=== PATIENT | female | born 1935 | race Caucasian/White ===

== ENCOUNTER 2016-09-16 03:23 | Emergency (ER) | payer OTHER ==
[2016-09-16 03:33] VITALS: BP 177/84; BMI 19.0
--- NOTE | 2016-09-16 03:33 | DR.GENAD ---
HPI - HPI Comment HPI Comment: HISTORY BELOW. - Complaint/Symptoms Chief Complaint Doctors Comments: FELL WHIE GETTING INTO HER BED. LACERATION FOREHRAD. FELL DRUNK SINCE SHE STARTED TAKING A NEW MEDICATION ONE WEEK AGO. DID NOT LOOSE CONCIOUSNESS. Chief Complaint:: "I have been feeling dizzy for the past week now. I started some new medication and it has made me feel that way I think. I was getting into bed and fell and cut my head open." - Nurses notes reviewed Nurses Notes Review: Yes - Source History Provided: EMS - Mode of Arrival Mode of Arrival: EMS - Timing Onset of Chief Complaint: 09/16/16 Came on: Suddenly - Duration Duration: Constant Duration: Hours - Severity Severity: Moderate PMH - PMH Past Medical History: Yes Past Medical History: Coronary Artery Disease, Hypertension Past Surgical History: Yes Surgical History: Angioplasty/Stents, Cholecystectomy, Hysterectomy Past Surgical History Comment: Ablation for a-fib - Family History History of Family Medical Conditions: Yes Family Medical History: Diabetes Mellitus, Cancer, [place], Coronary Artery Disease, Hypertension - Social History Does patient currently use any type of tobacco product: No Have you used tobacco products in the last 12 months: No Type of Tobacco Use: None Does any household member use tobacco: No Alcohol Use: None Do you use any recreational Drugs:: No Lives With: Alone Lives Where: Home - infectious screening In the last 2 months have you had wt loss of >10#?: NO Have you had fever, night sweats or hemotysis?: No Have you traveled outside the country in the last 6 months?: No Isolation: Standard ROS - Review of Systems Constitutional: No Symptoms Reported Eyes: No Symptoms Reported ENTM: negative: Ear Pain, Nose Discharge, Epistaxis, Nose Congestion, Throat Swelling Respiratoy: negative: Productive Cough, Non-Productive Cough, Short of Breath, Wheezing, Hemoptysis Cardiovascular: negative: Chest Pain, Edema, Palpitations, Syncope Gastrointestinal/Abdominal: negative: Abdominal Pain, Diarrhea, Nausea Genitourinary: negative: Dysuria, Frequency, Hematuria Neurological: Headache (MILD), Dizziness, Problems Walking Musculoskeletal: Other (FOREHEAD LAC, 3C,) Integumentary: Other (LAC FOREHEAD, 3CM) Hematologic/Lymphatic: Easy Bruising Endocrine: No Symptoms Reported All Other Systems: Reviewed and Negative PE - Vital Signs Vitals: Temperature 97.5 F Pulse Rate 73 Respiratory Rate 18 Blood Pressure [Right Arm] 163/75 Blood Pressure [Right Arm] 164/75 Blood Pressure 177/84 O2 Sat by Pulse Oximetry 99 - General Limitations: No Limitations General Appearance: Alert - Head Head Exam: Other (3CM FOREHEAD LACERATION) - Eyes Eye exam: PERRL, EOMI. negative: Conjunctival Injection - ENT ENT Exam: Normal External Ear Exam, Other (DECREASE HEARING.) TM/Canal Exam: Bilateral Normal Nose Exam: Normal Nose Exam Mouth Exam: Normal Inspection Throat Exam: Normal Inspection - Neck Neck Exam: Normal Inspection - Chest Chest Inspection: Symmetric Chest Wall Rise - Respiratory Respiratory Exam: Normal Lung Sounds Bilat Respiratory Exam: Bilateral Clear to Auscultation - Cardiovascular Cardiovascular Exam: Regular Rate, Normal Rhythm, Normal Heart Sounds - Abdominal Exam Abdominal Exam: Normal Bowel Sounds, Soft. negative: Tenderness - Extremities Extremities Exam: Normal Inspection - Back Back Exam: Paraspinal Tenderness - Neurologic Neurological Exam: Alert, Oriented X3 - Psychiatric Psychiatric Exam: Normal Affect, Normal Mood - Skin Skin Exam: Erythema MDM - Differential Diagnosis Differential Diagnosis: LACERATION FOREHEAD, HEAD TRAUMA, CEREBRAL BLEED, DIZZINESS. Course - Treatment Treatment: SEE ORDERS. LACERATION CLOSED IN ED. - Reevaluation 1st: Improved - Education/Counseling Education/Counseling: Patient, Education Educated On: Diagnosis, Needs for Follow Up ROR - Labs Reviewed Laboratory Results Reviewed?: Yes Result Diagrams: 09/16/16 04:20 09/16/16 04:20 Laboratory: WBC 6.0 X10^3/uL (3.6-10.0) 09/16/16 04:20 RBC 3.71 X10^6/uL (3.5-5.4) 09/16/16 04:20 Hgb 11.6 g/dL (12.0-16.0) L 09/16/16 04:20 Hct 33.8 % (36.0-47.0) L 09/16/16 04:20 MCV 91.0 fL (80.0-100.0) 09/16/16 04:20 MCH 31.2 pg (27.0-34.0) 09/16/16 04:20 MCHC 34.3 g/dL (33.0-35.0) 09/16/16 04:20 RDW 13.3 % (11.6-16.5) 09/16/16 04:20 Plt Count 211 X10^3/uL (150.0-450.0) 09/16/16 04:20 MPV 8.8 fL (7.4-11.0) 09/16/16 04:20 Neut % 66.3 % (42.0-75.0) 09/16/16 04:20 Lymph % 19.4 % (21.0-51.0) L 09/16/16 04:20 [place] % 7.6 % (0.0-13.0) 09/16/16 04:20 Eos % 5.7 % (0.9-2.9) H 09/16/16 04:20 Baso % 1.0 % (0.2-1.0) 09/16/16 04:20 Neut # 4.0 x10^3/uL (2.2-4.8) 09/16/16 04:20 Lymph # 1.2 X10^3/uL (1.3-2.9) L 09/16/16 04:20 [place] # 0.5 x10^3/uL (0.3-0.8) 09/16/16 04:20 Eos # 0.3 x10^3/uL (0.0-0.2) H 09/16/16 04:20 Baso # 0.1 X10^3/uL (0.0-0.1) 09/16/16 04:20 Absolute Nucleated RBC 0.0 /100WBC 09/16/16 04:20 Sodium 130 mmol/L (136-145) L 09/16/16 04:20 Corrected Sodium TNP 09/16/16 04:20 Potassium 4.1 mmol/L (3.5-5.1) 09/16/16 04:20 Chloride 93 mmol/L (98-107) L 09/16/16 04:20 Carbon Dioxide 31.4 mmol/L (21-32) 09/16/16 04:20 BUN 17 mg/dL (7-18) 09/16/16 04:20 Creatinine 0.99 mg/dL (0.55-1.02) 09/16/16 04:20 Est GFR (MDRD) Af Amer > 60 (>60) 09/16/16 04:20 Est GFR (MDRD) Non-Af 57 (>60) L 09/16/16 04:20 Glucose 101 mg/dL (65-99) H 09/16/16 04:20 Calcium 8.7 mg/dL (8.5-10.1) 09/16/16 04:20 Corrected Calcium 9.3 mg/dL (8.5-10.1) 09/16/16 04:20 Total Bilirubin 0.20 mg/dL (0.2-1.0) 09/16/16 04:20 AST 20 Units/L (15-37) 09/16/16 04:20 ALT 25 Units/L (12-78) 09/16/16 04:20 Alkaline Phosphatase 96 Units/L (46-116) 09/16/16 04:20 Creatine Kinase 36 Units/L (26-192) 09/16/16 04:20 CK-MB (CK-2) 1.7 ng/mL (0-4.0) 09/16/16 04:20 CK/CKMB % Calc 4.7 % (<4) 09/16/16 04:20 Troponin I < 0.02 ng/mL (0-1.5) 09/16/16 04:20 Total Protein 6.8 g/dL (6.4-8.2) 09/16/16 04:20 Albumin 3.3 g/dL (3.4-5.0) L 09/16/16 04:20 Globulin 3.5 g/dL (2.5-4.5) 09/16/16 04:20 Albumin/Globulin Ratio 0.9 Ratio (1.1-2.1) L 09/16/16 04:20 - XRAY XRAY Interpreted by: Radiologist XRAY Findings: REPORT DISCUSS WITH PATIENT, - EKG Rhythm: Paced (EKG NOTED.) - Diagnosis Discharge Problem: Laceration of forehead Qualifiers: Encounter type: initial encounter Qualified Code(s): S01.81XA - Laceration without foreign body of other part of head, initial encounter Forehead contusion Qualifiers: Encounter type: initial encounter Qualified Code(s): S00.83XA - Contusion of other part of head, initial encounter - Discharge Plan Disposition: 01 HOME, SELF-CARE Condition: Stable - Follow ups/Referrals Follow ups/Referrals: Devante Mera [Primary Care Provider] - 3 days - Instructions Instructions: Facial Laceration, Laceration Care, Adult, [id number] Additional Instructions: RETURN TO ED IF WORSE. SUTURE OUT IN 10 DAYS.
[2016-09-16] MEDS ORDERED: XYLOCAINE 1 % (PLAIN) ONE (04:19)
[2016-09-16] MEDS ORDERED: HYDROGEN PEROXIDE 3% ONE (04:27)
--- NOTE | 2016-09-16 04:32 | CT ---
Head without contrast Indication: Pain after fall. Head trauma. Technique: Axial images from the skullbase to the vertex without contrast. Coronal and sagittal refo rmats were provided. Findings: There is no acute intracranial hemorrhage, mass or mass effect. FX at of fluid collection or abnormal area of hypoattenuation to suggest infarction seen. Ventricles and sulci are show mild m ild atrophy. Review of bone windows shows no osseous lesion. Paranasal sinuses and mastoid air cells are clear. 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 Reported By:
[2016-09-16 04:35] LABS: BASOPHILS # (AUTO) 0.1 X10^3/uL (0.0-0.1); EOSINOPHILS # (AUTO) 0.3 x10^3/uL (0.0-0.2); EOSINOPHILS % (AUTO) 5.7 % (0.9-2.9); HEMATOCRIT 33.8 % (36.0-47.0); HEMOGLOBIN 11.6 g/dL (12.0-16.0); LYMPHOCYTES # (AUTO) 1.2 X10^3/uL (1.3-2.9); LYMPHOCYTES % (AUTO) 19.4 % (21.0-51.0); MEAN CORPUSCULAR HEMOGLOBIN 31.2 pg (27.0-34.0); MEAN CORPUSCULAR HGB CONC 34.3 g/dL (33.0-35.0); MEAN PLATELET VOLUME 8.8 fL (7.4-11.0); MONOCYTES # (AUTO) 0.5 x10^3/uL (0.3-0.8); MONOCYTES % (AUTO) 7.6 % (0.0-13.0); NEUTROPHILS % (AUTO) 66.3 % (42.0-75.0); PLATELET COUNT 211 X10^3/uL (150.0-450.0); RED BLOOD COUNT 3.71 X10^6/uL (3.5-5.4); RED CELL DISTRIBUTION WIDTH 13.3 % (11.6-16.5)
[2016-09-16 04:48] LABS: BLOOD UREA NITROGEN 17 mg/dL (7-18); CALCIUM 8.7 mg/dL (8.5-10.1); CARBON DIOXIDE 31.4 mmol/L (21-32); CHLORIDE 93 mmol/L (98-107); CREATININE 0.99 mg/dL (0.55-1.02); GLUCOSE 101 mg/dL (65-99); SODIUM 130 mmol/L (136-145); TROPONIN I < 0.02 ng/mL (0-1.5); eGFR BLACK RACES > 60 (>60); eGFR NON BLACK RACES 57 (>60)
[2016-09-16 04:52] LABS: ALANINE AMINOTRANSFERASE 25 Units/L (12-78); ALBUMIN 3.3 g/dL (3.4-5.0); ALKALINE PHOSPHATASE 96 Units/L (46-116); ASPARTATE AMINO TRANSFERASE 20 Units/L (15-37); CKMB % 4.7 % (<4); COR CA(FOR HYPOALB) 9.3 mg/dL (8.5-10.1); CREATINE KINASE 36 Units/L (26-192); CREATINE KINASE MB 1.7 ng/mL (0-4.0); TOTAL PROTEIN 6.8 g/dL (6.4-8.2)
== END 2016-09-16 05:32 | disposition home or self-care (01) ==
LOC: ER 03:23
PROC: 0WQ00ZZ Repair Head, Open Approach (ICD-10-PCS; principal; 2016-09-16)
DX: S01.81XA Laceration without foreign body of other part of head, initial encounter (principal); S00.83XA Contusion of other part of head, initial encounter; W19.XXXA Unspecified fall, initial encounter; Y92.9 Unspecified place or not applicable
CPT/HCPCS: 12013; 36415; 70450; 80053; 82550; 82553; 84484; 85025; 93005; 99283; J2001

== ENCOUNTER → 2016-10-05 | Outpatient (CLI) | payer OTHER ==
[2016-09-16 03:33] VITALS: BP 177/84
--- NOTE | 2016-10-05 15:00 | CT ---
HISTORY: Abnormal gait, mobility. Study: CT brain without contrast Comparison: CT head dated September 16, 2016. Technique: Multiple axial images of the brain were obtained from the skull base to the vertex without administr ation of IV contrast. Dose reduction techniques including Automated Exposure Control (AEC) and adju stment of mA and kV were utilized. Findings: Age related cortical atrophy and chronic small vessel ischemic changes . Calcification of the bilate ral basal ganglia. No acute intraparenchymal hemorrhage or mass can be identified. No extra-axial f luid collections are seen. No alteration in the attenuation of the brain parenchyma can be identifi ed to suggest acute or subacute ischemic change. The ventricular system is symmetric and nondilated . The extracranial structures are grossly unremarkable. IMPRESSION: 1. No obvious acute intracranial pathology. 2. Other chronic findings as above. Reported By:
== END ==
LOC: RAD 14:13
PROVIDERS: ATTEND Internal Medicine
DX: R26.89 Other abnormalities of gait and mobility (principal); Z87.828 Personal history of other (healed) physical injury and trauma
CPT/HCPCS: 70450

== ENCOUNTER 2016-12-03 13:19 | Emergency (ER) | payer OTHER ==
[2016-12-03] MEDS ORDERED: ZOFRAN INJ 4 MG VIAL IVP ONE ×2 (13:29→13:59)
[2016-12-03] MEDS ORDERED: ZOFRAN INJ 4 MG VIAL ONE ×2 (13:30→13:59)
[2016-12-03 13:41] VITALS: BP 168/77; BMI 19.0
--- NOTE | 2016-12-03 14:01 | DR.GENAD ---
HPI - PCP Primary Care Physician: Dr. Mera - HPI Comment HPI Comment: HISTORY BELOW. CHEST DISCOMFORT DUE TO VOMITING. - Complaint/Symptoms Chief Complaint Doctors Comments: DIZZINESS, ATAXIA, NAUSEA,VOMITING AND HEADACHE SEVERAL HOURS TODAY. TOOK MECLIZINE WITHOUT RELIEF. HAVE VERTIGO THAT NORMALLY RESPOND TO MECLIZINE. FREQUENT FALL AND HEAD TRAUMA. NONE TODAY. Chief Complaint:: I think it's vertigo. Self Treatment fo Chief Complaint: Meclizine earlier in the morning and then I took two more and after that I took a motion sickness tablet. 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 negative: Chills, Diaphoresis, Fever Eyes: No Symptoms Reported. negative: Eye Pain, Blurred Vision, Discharge ENTM: No Symptoms Reported. negative: Ear Pain, Nose Discharge, Nose Congestion , Throat Pain Respiratoy: Non-Productive Cough, Short of Breath. negative: Productive Cough, Wheezing, Hemoptysis Cardiovascular: Chest Pain (PROBABLY REFLUX.) Gastrointestinal/Abdominal: Nausea, Vomiting. negative: Abdominal Pain, Diarrhea Genitourinary: No Symptoms Reported. negative: Dysuria, Frequency, Hematuria Neurological: Headache, Weakness, Dizziness Musculoskeletal: Muscle Pain Integumentary: No Symptoms Reported Hematologic/Lymphatic: No Symptoms Reported Endocrine: No Symptoms Reported All Other Systems: Reviewed and Negative PE - Vital Signs Vitals: Temperature 97.8 F Pulse Rate [Apical] 69 Pulse Rate 69 Respiratory Rate 20 Blood Pressure [Right Arm] 168/77 Blood Pressure [Right Arm] 164/75 Blood Pressure 168/77 - General Limitations: No Limitations General Appearance: Alert - Head Head Exam: Normal Inspection - Eyes Eye exam: Normal Appearance - ENT ENT Exam: Normal External Ear Exam External Ear Exam: Normal External Inspection TM/Canal Exam: Bilateral Normal MDM - Additional Information Additional Information Obtained From: Family - Differential Diagnosis Differential Diagnosis: VERTIGO, CVA, TIA, [place], UTI, PNEUMONIA Course - Treatment Treatment: SEE ORDERS. - Education/Counseling Education/Counseling: Patient, Family, Education Educated On: Treatment, Diagnosis, Needs for Follow Up ROR - Labs Reviewed Laboratory Results Reviewed?: Yes Result Diagrams: 12/03/16 14:20 12/03/16 14:20 Laboratory: WBC 6.9 X10^3/uL (3.6-10.0) 12/03/16 14:20 RBC 3.30 X10^6/uL (3.5-5.4) L 12/03/16 14:20 Hgb 10.3 g/dL (12.0-16.0) L 12/03/16 14:20 Hct 30.2 % (36.0-47.0) L 12/03/16 14:20 MCV 91.5 fL (80.0-100.0) 12/03/16 14:20 MCH 31.3 pg (27.0-34.0) 12/03/16 14:20 MCHC 34.2 g/dL (33.0-35.0) 12/03/16 14:20 RDW 13.7 % (11.6-16.5) 12/03/16 14:20 Plt Count 138 X10^3/uL (150.0-450.0) L 12/03/16 14:20 MPV 9.9 fL (7.4-11.0) 12/03/16 14:20 Neut % 83.0 % (42.0-75.0) H 12/03/16 14:20 Lymph % 9.5 % (21.0-51.0) L 12/03/16 14:20 [place] % 4.8 % (0.0-13.0) 12/03/16 14:20 Eos % 2.0 % (0.9-2.9) 12/03/16 14:20 Baso % 0.7 % (0.2-1.0) 12/03/16 14:20 Neut # 5.7 x10^3/uL (2.2-4.8) H 12/03/16 14:20 Lymph # 0.7 X10^3/uL (1.3-2.9) L 12/03/16 14:20 [place] # 0.3 x10^3/uL (0.3-0.8) 12/03/16 14:20 Eos # 0.1 x10^3/uL (0.0-0.2) 12/03/16 14:20 Baso # 0.0 X10^3/uL (0.0-0.1) 12/03/16 14:20 Absolute Nucleated RBC 0.0 /100WBC 12/03/16 14:20 Sodium 135 mmol/L (136-145) L 12/03/16 14:20 Corrected Sodium TNP 12/03/16 14:20 Potassium 4.3 mmol/L (3.5-5.1) 12/03/16 14:20 Chloride 102 mmol/L (98-107) 12/03/16 14:20 Carbon Dioxide 27.0 mmol/L (21-32) 12/03/16 14:20 BUN 31 mg/dL (7-18) H 12/03/16 14:20 Creatinine 0.93 mg/dL (0.55-1.02) 12/03/16 14:20 Est GFR (MDRD) Af Amer > 60 (>60) 12/03/16 14:20 Est GFR (MDRD) Non-Af > 60 (>60) 12/03/16 14:20 Glucose 105 mg/dL (65-99) H 12/03/16 14:20 Calcium 8.9 mg/dL (8.5-10.1) 12/03/16 14:20 Corrected Calcium 9.6 mg/dL (8.5-10.1) 12/03/16 14:20 Total Bilirubin 0.40 mg/dL (0.2-1.0) 12/03/16 14:20 AST 24 Units/L (15-37) 12/03/16 14:20 ALT 24 Units/L (12-78) 12/03/16 14:20 Alkaline Phosphatase 77 Units/L (46-116) 12/03/16 14:20 Creatine Kinase 51 Units/L (26-192) 12/03/16 14:20 CK-MB (CK-2) 1.3 ng/mL (0-4.0) 12/03/16 14:20 CK/CKMB % Calc 2.6 % (<4) 12/03/16 14:20 Troponin I < 0.02 ng/mL (0-1.5) 12/03/16 14:20 Total Protein 6.3 g/dL (6.4-8.2) L 12/03/16 14:20 Albumin 3.1 g/dL (3.4-5.0) L 12/03/16 14:20 Globulin 3.2 g/dL (2.5-4.5) 12/03/16 14:20 Albumin/Globulin Ratio 1.0 Ratio (1.1-2.1) L 12/03/16 14:20 - EKG Rhythm: Paced (EKG NOTED.) - Diagnosis Discharge Problem: Vertigo, Dizziness Vomiting Qualifiers: Vomiting type: bilious vomiting Nausea presence: with nausea Qualified Code(s) : R11.14 - Bilious vomiting - Discharge Plan Disposition: HOME, SELF-CARE Condition: Stable - Follow ups/Referrals Follow ups/Referrals: Devante Mera [Primary Care Provider] - 1 day - Instructions Instructions: Vertigo, [id number], Dizziness, [id number] Additional Instructions: RETURN TO ED IF WORSE.
[2016-12-03 14:33] LABS: BASOPHILS % (AUTO) 0.7 % (0.2-1.0); EOSINOPHILS # (AUTO) 0.1 x10^3/uL (0.0-0.2); HEMATOCRIT 30.2 % (36.0-47.0); HEMOGLOBIN 10.3 g/dL (12.0-16.0); LYMPHOCYTES # (AUTO) 0.7 X10^3/uL (1.3-2.9); LYMPHOCYTES % (AUTO) 9.5 % (21.0-51.0); MEAN CORPUSCULAR HEMOGLOBIN 31.3 pg (27.0-34.0); MEAN CORPUSCULAR HGB CONC 34.2 g/dL (33.0-35.0); MEAN CORPUSCULAR VOLUME 91.5 fL (80.0-100.0); MEAN PLATELET VOLUME 9.9 fL (7.4-11.0); MONOCYTES # (AUTO) 0.3 x10^3/uL (0.3-0.8); MONOCYTES % (AUTO) 4.8 % (0.0-13.0); NEUTROPHILS # (AUTO) 5.7 x10^3/uL (2.2-4.8); PLATELET COUNT 138 X10^3/uL (150.0-450.0); RED CELL DISTRIBUTION WIDTH 13.7 % (11.6-16.5); WHITE BLOOD COUNT 6.9 X10^3/uL (3.6-10.0)
[2016-12-03 14:50] LABS: ALANINE AMINOTRANSFERASE 24 Units/L (12-78); ALBUMIN 3.1 g/dL (3.4-5.0); ALKALINE PHOSPHATASE 77 Units/L (46-116); ASPARTATE AMINO TRANSFERASE 24 Units/L (15-37); BLOOD UREA NITROGEN 31 mg/dL (7-18); CALCIUM 8.9 mg/dL (8.5-10.1); CHLORIDE 102 mmol/L (98-107); COR CA(FOR HYPOALB) 9.6 mg/dL (8.5-10.1); CREATINE KINASE 51 Units/L (26-192); CREATININE 0.93 mg/dL (0.55-1.02); SODIUM 135 mmol/L (136-145); TOTAL PROTEIN 6.3 g/dL (6.4-8.2); TROPONIN I < 0.02 ng/mL (0-1.5); eGFR BLACK RACES > 60 (>60); eGFR NON BLACK RACES > 60 (>60)
[2016-12-03] MEDS ORDERED: ANTIVERT TAB 25 MG PO ONE (15:42)
[2016-12-03] MEDS ORDERED: ANTIVERT TAB 25 MG ONE (15:53)
[2016-12-03 22:10] LABS: CKMB % 2.6 % (<4); CREATINE KINASE MB 1.3 ng/mL (0-4.0)
== END 2016-12-03 17:25 | disposition home or self-care (01) ==
LOC: ER 13:29
DX: R42 Dizziness and giddiness (principal); R11.14 Bilious vomiting
CPT/HCPCS: 36415; 80053; 82550; 82553; 84484; 85025; 93005; 93010; 96365; 96374; 96375; 99283; J2405

== ENCOUNTER → 2016-12-28 | Outpatient (CLI) | payer OTHER ==
[2016-12-03 13:41] VITALS: BP 168/77
== END ==
LOC: LAB 18:29
PROVIDERS: ATTEND Internal Medicine Gastroenterology
DX: K64.0 First degree hemorrhoids (principal)
CPT/HCPCS: 82270

== ENCOUNTER 2017-01-24 13:47 | Emergency (ER) | payer OTHER ==
[2017-01-24 14:00] VITALS: BMI 18.8
--- NOTE | 2017-01-24 14:08 | DR.GENAD ---
HPI - HPI Comment HPI Comment: PATIENTHAVE HISTORY OF VERTIGO.SHE TOOK HER MEDICINE SHE HAS AT HOME. NO RELIEGF. EMS CALLED.GIVEN MED FOR NAUSESA. SYMTOMS WORSE. - Complaint/Symptoms Chief Complaint Doctors Comments: DIZZINESS, VERTIGO AND HEADACHE. Chief Complaint:: PT C/O VERTIGO, NAUSEA AND VOMTTING. PT STATES SHE HAS A HISTORY OF THIS AND SHE TAKES ANTIVERT 50MG BID. 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 - Family History History of Family Medical Conditions: Yes Family Medical History: Diabetes Mellitus, Cancer, Coronary Artery Disease, Hypertension - Social History Does any household member use tobacco: No Do you use any recreational Drugs:: No Lives With: Family Lives Where: Home - infectious screening In the last 2 months have you had wt loss of >10#?: NO Have you had fever, night sweats or hemotysis?: No Have you traveled outside the country in the last 6 months?: No Isolation: Standard ROS - Review of Systems Constitutional: No Symptoms Reported Eyes: No Symptoms Reported ENTM: No Symptoms Reported Respiratoy: No Symptoms Reported Cardiovascular: No Symptoms Reported Gastrointestinal/Abdominal: No Symptoms Reported Genitourinary: No Symptoms Reported Neurological: Headache, Weakness, Dizziness Musculoskeletal: No Symptoms Reported Integumentary: No Symptoms Reported Hematologic/Lymphatic: No Symptoms Reported Endocrine: No Symptoms Reported All Other Systems: Reviewed and Negative PE - Vital Signs Vitals: Temperature 97.3 F Pulse Rate [Apical] 72 Pulse Rate 82 Respiratory Rate 12 Blood Pressure [Right Arm] 149/76 Blood Pressure [Right Arm] 164/75 Blood Pressure 176/86 O2 Sat by Pulse Oximetry 100 - General Limitations: No Limitations General Appearance: Alert - Head Head Exam: Normal Inspection - Eyes Eye exam: Normal Appearance - ENT ENT Exam: Normal External Ear Exam External Ear Exam: Normal External Inspection TM/Canal Exam: Bilateral Normal Nose Exam: Normal Nose Exam Mouth Exam: Normal Inspection Throat Exam: Normal Inspection - Neck Neck Exam: Trachea Midline - Chest Chest Inspection: Symmetric Chest Wall Rise - Respiratory Respiratory Exam: Normal Lung Sounds Bilat Respiratory Exam: Bilateral Rhonchi, Upper Rhonchi, Lower Rhonchi - Cardiovascular Cardiovascular Exam: Regular Rate, Normal Rhythm, Normal Heart Sounds - Abdominal Exam Abdominal Exam: Normal Bowel Sounds, Soft. negative: Tenderness - Extremities Extremities Exam: Normal Inspection - Back Back Exam: Normal Inspection - Neurologic Neurological Exam: Alert, Oriented X3 - Psychiatric Psychiatric Exam: Normal Affect, Normal Mood - Skin Skin Exam: Normal Color MDM - Differential Diagnosis Differential Diagnosis: VERTIGO, DIZZINESS, [place], UTI, PNEUMONIA. Course - Treatment Treatment: SEE ORDER. MEDS IN ED, IMPROVING. MOVING IN THE ROOM AND TOLERATING IT WELL, - Reevaluation 1st: Improved - Education/Counseling Education/Counseling: Patient, Education Educated On: Treatment, Diagnosis, Needs for Follow Up ROR - Labs Reviewed Laboratory Results Reviewed?: Yes Result Diagrams: 01/24/17 14:36 01/24/17 14:36 Laboratory: WBC 8.2 X10^3/uL (3.6-10.0) 01/24/17 14:36 RBC 3.77 X10^6/uL (3.5-5.4) 01/24/17 14:36 Hgb 11.7 g/dL (12.0-16.0) L 01/24/17 14:36 Hct 34.4 % (36.0-47.0) L 01/24/17 14:36 MCV 91.4 fL (80.0-100.0) 01/24/17 14:36 MCH 31.1 pg (27.0-34.0) 01/24/17 14:36 MCHC 34.1 g/dL (33.0-35.0) 01/24/17 14:36 RDW 12.8 % (11.6-16.5) 01/24/17 14:36 Plt Count 193 X10^3/uL (150.0-450.0) 01/24/17 14:36 MPV 8.5 fL (7.4-11.0) 01/24/17 14:36 Neut % 85.6 % (42.0-75.0) H 01/24/17 14:36 Lymph % 7.5 % (21.0-51.0) L 01/24/17 14:36 [place] % 5.6 % (0.0-13.0) 01/24/17 14:36 Eos % 0.8 % (0.9-2.9) L 01/24/17 14:36 Baso % 0.5 % (0.2-1.0) 01/24/17 14:36 Neut # 7.1 x10^3/uL (2.2-4.8) H 01/24/17 14:36 Lymph # 0.6 X10^3/uL (1.3-2.9) L 01/24/17 14:36 [place] # 0.5 x10^3/uL (0.3-0.8) 01/24/17 14:36 Eos # 0.1 x10^3/uL (0.0-0.2) 01/24/17 14:36 Baso # 0.0 X10^3/uL (0.0-0.1) 01/24/17 14:36 Absolute Nucleated RBC 0.0 /100WBC 01/24/17 14:36 Sodium 132 mmol/L (136-145) L 01/24/17 14:36 Corrected Sodium TNP 01/24/17 14:36 Potassium 4.5 mmol/L (3.5-5.1) 01/24/17 14:36 Chloride 97 mmol/L (98-107) L 01/24/17 14:36 Carbon Dioxide 26.8 mmol/L (21-32) 01/24/17 14:36 BUN 22 mg/dL (7-18) H 01/24/17 14:36 Creatinine 0.82 mg/dL (0.55-1.02) 01/24/17 14:36 Est GFR (MDRD) Af Amer > 60 (>60) 01/24/17 14:36 Est GFR (MDRD) Non-Af > 60 (>60) 01/24/17 14:36 Glucose 96 mg/dL (65-99) 01/24/17 14:36 Calcium 8.8 mg/dL (8.5-10.1) 01/24/17 14:36 Corrected Calcium 9.5 mg/dL (8.5-10.1) 01/24/17 14:36 Total Bilirubin 0.20 mg/dL (0.2-1.0) 01/24/17 14:36 AST 20 Units/L (15-37) 01/24/17 14:36 ALT 20 Units/L (12-78) 01/24/17 14:36 Alkaline Phosphatase 68 Units/L (46-116) 01/24/17 14:36 Creatine Kinase 27 Units/L (26-192) 01/24/17 14:36 CK-MB (CK-2) 1.1 ng/mL (0-4.0) 01/24/17 14:36 CK/CKMB % Calc 4.1 % (<4) 01/24/17 14:36 Troponin I < 0.02 ng/mL (0-1.5) 01/24/17 14:36 Total Protein 6.3 g/dL (6.4-8.2) L 01/24/17 14:36 Albumin 3.1 g/dL (3.4-5.0) L 01/24/17 14:36 Globulin 3.2 g/dL (2.5-4.5) 01/24/17 14:36 Albumin/Globulin Ratio 1.0 Ratio (1.1-2.1) L 01/24/17 14:36 - XRAY XRAY Interpreted by: Radiologist XRAY Findings: REPORT DISCUSS WITH PATIENT. - EKG Rhythm: NSR (EKG NOTED) - Diagnosis Discharge Problem: Dizziness, Vertigo - Discharge Plan Disposition: 01 HOME, SELF-CARE Condition: Stable - Follow ups/Referrals Follow ups/Referrals: Devante Mera [Primary Care Provider] - 01/26/17 - Instructions Instructions: Vertigo, [id number], Dizziness, [id number] Additional Instructions: RETURN TO ED IF WORSE.
[2017-01-24 14:45] LABS: BASOPHILS % (AUTO) 0.5 % (0.2-1.0); EOSINOPHILS # (AUTO) 0.1 x10^3/uL (0.0-0.2); EOSINOPHILS % (AUTO) 0.8 % (0.9-2.9); HEMATOCRIT 34.4 % (36.0-47.0); HEMOGLOBIN 11.7 g/dL (12.0-16.0); LYMPHOCYTES # (AUTO) 0.6 X10^3/uL (1.3-2.9); LYMPHOCYTES % (AUTO) 7.5 % (21.0-51.0); MEAN CORPUSCULAR HEMOGLOBIN 31.1 pg (27.0-34.0); MEAN CORPUSCULAR HGB CONC 34.1 g/dL (33.0-35.0); MEAN CORPUSCULAR VOLUME 91.4 fL (80.0-100.0); MEAN PLATELET VOLUME 8.5 fL (7.4-11.0); MONOCYTES # (AUTO) 0.5 x10^3/uL (0.3-0.8); MONOCYTES % (AUTO) 5.6 % (0.0-13.0); NEUTROPHILS # (AUTO) 7.1 x10^3/uL (2.2-4.8); NEUTROPHILS % (AUTO) 85.6 % (42.0-75.0); PLATELET COUNT 193 X10^3/uL (150.0-450.0); RED BLOOD COUNT 3.77 X10^6/uL (3.5-5.4); RED CELL DISTRIBUTION WIDTH 12.8 % (11.6-16.5); WHITE BLOOD COUNT 8.2 X10^3/uL (3.6-10.0)
--- NOTE | 2017-01-24 15:04 | RAD ---
HISTORY: Hypertension Study: Chest AP portable Comparison: None Findings: The heart is upper limits normal in size. No congestive heart failure is noted. The lungs are mildly hyperinflated but free of acute alveolar infiltrates. A nodular density in the right lung base either represents a calcified benign granuloma, less likely nipple shadow. No pleural effusions are identif ied. The bony thorax is unremarkable. There is a pacemaker present on the left. IMPRESSION: Lungs mildly hyperinflated but clear Well-defined nodular density projected over the right lower lobe either a benign calcified granuloma, less likely nipple shadow Reported By:
[2017-01-24 15:07] LABS: ALANINE AMINOTRANSFERASE 20 Units/L (12-78); ALBUMIN 3.1 g/dL (3.4-5.0); ALKALINE PHOSPHATASE 68 Units/L (46-116); ASPARTATE AMINO TRANSFERASE 20 Units/L (15-37); BLOOD UREA NITROGEN 22 mg/dL (7-18); CALCIUM 8.8 mg/dL (8.5-10.1); CARBON DIOXIDE 26.8 mmol/L (21-32); CHLORIDE 97 mmol/L (98-107); CKMB % 4.1 % (<4); COR CA(FOR HYPOALB) 9.5 mg/dL (8.5-10.1); CREATINE KINASE 27 Units/L (26-192); CREATINE KINASE MB 1.1 ng/mL (0-4.0); CREATININE 0.82 mg/dL (0.55-1.02); SODIUM 132 mmol/L (136-145); TOTAL PROTEIN 6.3 g/dL (6.4-8.2); TROPONIN I < 0.02 ng/mL (0-1.5); eGFR BLACK RACES > 60 (>60); eGFR NON BLACK RACES > 60 (>60)
[2017-01-24] MEDS ORDERED: ZOFRAN INJ 4 MG VIAL IVP ONE (15:17)
--- NOTE | 2017-01-24 15:18 | CT ---
HISTORY: Vertigo, nausea and vomiting Study: CT brain without contrast Comparison: 10/05/2016 Technique: Multiple axial images of the brain were obtained from the skull base to the vertex without administra tion of IV contrast. Dose reduction techniques including Automated Exposure Control (AEC) and adjust ment of mA and kV were utilized. Findings: There is chronic moderate to advanced atrophy and nonspecific white matter hypoattenuation likely rel ated to microvascular ischemic changes. No evidence of acute hemorrhage, midline shift, mass effect or abnormal extra-axial fluid collection. The ventricular system is symmetric and nondilated. The s oft tissues and osseous structures are unremarkable. The visualized paranasal sinuses are clear. IMPRESSION: 1. Moderate to advanced nonspecific white matter changes likely due to microvascular disease. No acut e intracranial abnormality identified. Reported By:
[2017-01-24] MEDS ORDERED: ZOFRAN INJ 4 MG VIAL ONE (15:21)
[2017-01-24] MEDS ORDERED: ANTIVERT TAB 25 MG PO ONE (16:14)
[2017-01-24] MEDS ORDERED: TORADOL 30 MG VIAL IVP ONE (16:14)
[2017-01-24 16:16] VITALS: BP 149/76
[2017-01-24] MEDS ORDERED: TORADOL 30 MG VIAL ONE (16:39)
[2017-01-24] MEDS ORDERED: ANTIVERT TAB 25 MG ONE (16:39)
== END 2017-01-24 17:09 | disposition home or self-care (01) ==
LOC: ER 14:00
DX: R42 Dizziness and giddiness (principal); R94.31 Abnormal electrocardiogram [ECG] [EKG]
CPT/HCPCS: 36415; 70450; 71010; 80053; 82550; 82553; 84484; 85025; 96365; 96374; 96375; 99283; 99284; J1885; J2405

== ENCOUNTER 2017-02-10 14:10 | Emergency (ER) | payer OTHER ==
[2017-02-10 14:14] VITALS: BP 129/71; BMI 18.5
--- NOTE | 2017-02-10 14:54 | DR.GENAD ---
HPI - PCP Primary Care Physician: SHONA - Complaint/Symptoms Chief Complaint Doctors Comments: Patient states she has part of her hearing aide stuck into her left ear and she has not been able to get it out. States she has tinnitus so bad until they gave her hearing aides and they have helped. States she was putting her hearing aide in as usual but when she pulled the left one out part got stuck in her ear were the wire broke off. She denies pain , cold, cough, fever or chills. states she will have to go to [facility] to get her hearing air fixed. States she is a patient of Dr. Mera and she has no other problems. Chief Complaint:: PATIENT STATES THAT HE HAS PART OF HER HEARING AID STUCK IN LEFT EAR. 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 - Family History History of Family Medical Conditions: Yes Family Medical History: Diabetes Mellitus, Cancer, Coronary Artery Disease, Hypertension - Social History Does patient currently use any type of tobacco product: No Have you used tobacco products in the last 12 months: No Type of Tobacco Use: None Does any household member use tobacco: No Alcohol Use: None Do you use any recreational Drugs:: No Lives With: Family Lives Where: Home - infectious screening In the last 2 months have you had wt loss of >10#?: NO Have you had fever, night sweats or hemotysis?: No Have you traveled outside the country in the last 6 months?: No Isolation: Standard ROS - Review of Systems Constitutional: No Symptoms Reported. negative: See HPI, Chills, Diaphoresis, Fever, Malaise, Weakness, Irritable, Fatigue, Loss of Appetite, Other Eyes: No Symptoms Reported. negative: See HPI, Eye Pain, Blurred Vision, Tearing, Discharge, Photophobia, Diplopia, Other ENTM: No Symptoms Reported, Ear Pain. negative: See HPI, Ear Discharge, Pulling on Ears, Hearing Loss, Nose Pain, Nose Discharge, Epistaxis, Nose Congestion, Mouth Pain, Mouth Swelling, Loose Teeth, Drooling, Throat Pain, Throat Swelling, Ear Foreign Body Respiratoy: No Symptoms Reported. negative: See HPI, Productive Cough, Non- Productive Cough, Moist Cough, Dry Cough, Hacking Cough, Barking Cough, Brassy Cough, Orthopnea, Short of Breath, Stridor, Wheezing, Hemoptysis, Other Cardiovascular: No Symptoms Reported Gastrointestinal/Abdominal: No Symptoms Reported. negative: See HPI, Abdominal Pain, Constipation, Diarrhea, Nausea, Vomiting, Food Intolerance, Other Genitourinary: No Symptoms Reported. negative: See HPI, Discharge, Dysuria, Frequency, Hematuria, Pain, Bleeding, Other Neurological: No Symptoms Reported Musculoskeletal: No Symptoms Reported Integumentary: No Symptoms Reported Hematologic/Lymphatic: No Symptoms Reported Endocrine: No Symptoms Reported Psychiatric: No Symptoms Reported PE - Vital Signs Vitals: Temperature 97.6 F Pulse Rate 94 Respiratory Rate 20 Blood Pressure [Right Arm] 149/76 Blood Pressure [Right Arm] 164/75 Blood Pressure 129/71 O2 Sat by Pulse Oximetry 98 - General Limitations: No Limitations General Appearance: Alert, In No Apparent Distress - Head Head Exam: Normal Inspection, Atraumatic, Normocephalic - Eyes Eye exam: Normal Appearance, PERRL, EOMI. negative: Scleral Icterus, Conjunctival Injection, Nystagmus, Miosis, Mydrasis, Periorbital Swelling, Periorbital Tenderness, Other - ENT ENT Exam: Normal Exam, Normal Oropharynx, Normal External Ear Exam, Mucous Membranes Moist, TM's Normal Bilaterally (left auditory cannal with foreign body noted in cannal) External Ear Exam: Normal External Inspection TM/Canal Exam: Bilateral Normal Nose Exam: Normal Nose Exam Mouth Exam: Normal Inspection Throat Exam: Normal Inspection - Neck Neck Exam: Normal Inspection, Full ROM, Trachea Midline - Chest Chest Inspection: Normal Inspection, Symmetric Chest Wall Rise - Respiratory Respiratory Exam: Normal Lung Sounds Bilat Respiratory Exam: Bilateral Clear to Auscultation - Cardiovascular Cardiovascular Exam: Regular Rate, Normal Rhythm, Normal Heart Sounds - Abdominal Exam Abdominal Exam: Normal Inspection, Normal Bowel Sounds, Soft Abdominal Tenderness: negative: RUQ, RLQ, LUQ, LLQ, Epigastrium, Suprapubic, Diffuse, Mild, Moderate, Severe, Other - Extremities Extremities Exam: Normal Inspection, Full ROM, Normal Capillary Refill. negative: Tenderness, Edema, Joint Swelling, Calf Tenderness, Other - Back Back Exam: Normal Inspection, Full ROM - Neurologic Neurological Exam: Alert, Oriented X3, CN II-XII Intact, Normal Gait, Reflexes Normal - Psychiatric Psychiatric Exam: Normal Affect, Normal Mood - Skin Skin Exam: Warm, Dry, Intact, Normal Color - Diagnosis Discharge Problem: Foreign body of ear, left Qualifiers: Encounter type: initial encounter Qualified Code(s): T16.2XXA - Foreign body in left ear, initial encounter - Discharge Plan Disposition: HOME, SELF-CARE Condition: Stable - Follow ups/Referrals Follow ups/Referrals: Devante Mera [Primary Care Provider] - 3 days - Instructions Instructions: Ear Foreign Body Additional Notes - Additional Notes Additional Notes: Left auditory cannal with partial hearing aide removed with forceps without any difficulty. No bleeding or sign of trauma. Hearing aid removed intact.
== END 2017-02-10 15:18 | disposition home or self-care (01) ==
LOC: ER 14:10
DX: T16.2XXA Foreign body in left ear, initial encounter (principal)
CPT/HCPCS: 99282

== ENCOUNTER 2017-03-11 04:25 | Emergency (ER) | payer OTHER ==
[2017-03-11 04:36] VITALS: BMI 19.1
[2017-03-11] MEDS ORDERED: ANTIVERT TAB 25 MG PO ONE (04:40)
[2017-03-11] MEDS ORDERED: NS 1000 ML 1,000 ML ONE (04:41)
[2017-03-11] MEDS ORDERED: ANTIVERT TAB 25 MG ONE (04:42)
[2017-03-11] MEDS ORDERED: BENADRYL INJ 50 MG VIAL IVP ONE (04:44)
[2017-03-11] MEDS ORDERED: BENADRYL INJ 50 MG VIAL ONE (04:47)
--- NOTE | 2017-03-11 04:47 | DR.GENAD ---
HPI - PCP Primary Care Physician: kristina - Complaint/Symptoms Chief Complaint Doctors Comments: Patient is complaining of nausea, dizziness and her head spinning when she opens her eyes. EMS states the patient was on the floor in the position complaining of problems with vertigo. States she has been dealing with vertigo for years. She denies any recent head trauma , fever, chills, cold or cough. States she took and antivert about 12 mn and was going to take another one but could not find any water. she is complaining of being extremely dizzy when she opens her eyes with nausea. she denies chest pain, SOB, cold, cough, diarrhea or abdominal pain. states she has had a CT of her head but it has been a while ago. She denies history of having a stroke or heart attack. States she is a patient of Dr. Mera. states she did not put her hearing aides in and she is having problems hearing. She denies any recent falls or head trauma. 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, 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 - Family History History of Family Medical Conditions: Yes Family Medical History: Diabetes Mellitus, Cancer, Coronary Artery Disease, Hypertension - Social History Does patient currently use any type of tobacco product: No Have you used tobacco products in the last 12 months: No Type of Tobacco Use: None Alcohol Use: None Do you use any recreational Drugs:: No Lives With: Family Lives Where: Home - infectious screening In the last 2 months have you had wt loss of >10#?: NO Have you had fever, night sweats or hemotysis?: No Have you traveled outside the country in the last 6 months?: No Isolation: Standard ROS - Review of Systems Constitutional: No Symptoms Reported. negative: See HPI, Chills, Diaphoresis, Fever, Malaise, Weakness, Irritable, Fatigue, Loss of Appetite, Other Eyes: No Symptoms Reported ENTM: No Symptoms Reported, Hearing Loss. negative: See HPI, Ear Pain, Ear Discharge, Pulling on Ears, Nose Pain, Nose Discharge, Epistaxis, Nose Congestion, Mouth Pain, Mouth Swelling, Loose Teeth, Drooling, Throat Pain, Throat Swelling, Ear Foreign Body Respiratoy: No Symptoms Reported. negative: See HPI, Productive Cough, Non- Productive Cough, Moist Cough, Dry Cough, Hacking Cough, Barking Cough, Brassy Cough, Orthopnea, Short of Breath, Stridor, Wheezing, Hemoptysis, Other Cardiovascular: No Symptoms Reported. negative: See HPI, Chest Pain, Edema, Palpitations, Syncope, Cyanosis, Skin Mottling, Other Gastrointestinal/Abdominal: No Symptoms Reported, Nausea, Vomiting. negative: See HPI, Abdominal Pain, Constipation, Diarrhea, Food Intolerance, Other Genitourinary: No Symptoms Reported Neurological: No Symptoms Reported, Dizziness, Problems Walking. negative: See HPI, Anxiety, Depressed, Emotional Problems, Headache, Numbness, Paresthesia, Pre-existing Deficit, Seizure, Tingling, Tremors, Weakness, Speech Problem, Other Musculoskeletal: No Symptoms Reported Integumentary: No Symptoms Reported. negative: See HPI, Change in Color, Change in Hair/Nails, Dryness, Lesions, Lumps, Rash, Itching, Wound, Bruises, Juandice, Other Hematologic/Lymphatic: No Symptoms Reported Endocrine: No Symptoms Reported Psychiatric: No Symptoms Reported. negative: See HPI, Anxiety, Depression, Hallucinations, Excessive crying, Suicidal, Other PE - Vital Signs Vitals: Temperature 97.9 F Pulse Rate [Left] 70 Pulse Rate 78 Respiratory Rate 16 Blood Pressure [Left Arm] 149/65 Blood Pressure [Right Arm] 149/76 Blood Pressure [Right Arm] 164/75 Blood Pressure 181/82 O2 Sat by Pulse Oximetry 96 - General Limitations: No Limitations General Appearance: Alert, In Distress (moderate) - Head Head Exam: Normal Inspection, Atraumatic, Normocephalic - Eyes Eye exam: Normal Appearance, PERRL, EOMI. negative: Scleral Icterus ( conjuctiva pale), Conjunctival Injection, Nystagmus, Miosis, Mydrasis, Periorbital Swelling, Periorbital Tenderness, Other - ENT ENT Exam: Normal Exam, Normal Oropharynx, Normal External Ear Exam, Mucous Membranes Moist, TM's Normal Bilaterally External Ear Exam: Normal External Inspection TM/Canal Exam: Bilateral Normal Nose Exam: Normal Nose Exam Mouth Exam: Normal Inspection (dentures) Throat Exam: Normal Inspection. negative: Tonsillar Erythema, Tonsillomegaly, Tonsillar Exudate, R Peritonsillar Mass, L Peritonsillar Mass, Muffled Voice, Other - Neck Neck Exam: Normal Inspection, Full ROM, Trachea Midline - Chest Chest Inspection: Normal Inspection, Symmetric Chest Wall Rise - Respiratory Respiratory Exam: Normal Lung Sounds Bilat Respiratory Exam: Bilateral Clear to Auscultation - Cardiovascular Cardiovascular Exam: Regular Rate, Normal Rhythm, Normal Heart Sounds - Abdominal Exam Abdominal Exam: Normal Inspection, Normal Bowel Sounds, Soft Abdominal Tenderness: negative: RUQ, RLQ, LUQ, LLQ, Epigastrium, Suprapubic, Diffuse, Mild, Moderate, Severe, Other - Extremities Extremities Exam: Normal Inspection, Full ROM, Normal Capillary Refill. negative: Tenderness, Edema, Calf Tenderness - Back Back Exam: Normal Inspection, Full ROM. negative: Tenderness, (R) CVA Tenderness, (L) CVA Tenderness, Muscle Spasm, Paraspinal Tenderness, Vertebral Tenderness, Rashes, (R) Sciatic Notch Tenderness, (L) Sciatic Notch Tendern, (R ) Straight Leg Raise, (L) Straight Leg Raise, Other - Neurologic Neurological Exam: Alert, Oriented X3, CN II-XII Intact, Reflexes Normal. negative: Normal Gait (gait not tested) - Psychiatric Psychiatric Exam: Normal Affect, Normal Mood. negative: Depressed, Agitated, Anxious, Flat Affect, Manic, Homicidal Ideation, Suicidal Ideation, Other - Skin Skin Exam: Warm, Dry, Intact, Normal Color, Pallor ROR - Labs Reviewed Laboratory Results Reviewed?: Yes (all labs and x-ray results reviewed and discussed with patient) Result Diagrams: 03/11/17 04:50 03/11/17 04:50 Laboratory: WBC 6.6 X10^3/uL (3.6-10.0) 03/11/17 04:50 RBC 3.64 X10^6/uL (3.5-5.4) 03/11/17 04:50 Hgb 11.4 g/dL (12.0-16.0) L 03/11/17 04:50 Hct 33.5 % (36.0-47.0) L 03/11/17 04:50 MCV 92.0 fL (80.0-100.0) 03/11/17 04:50 MCH 31.3 pg (27.0-34.0) 03/11/17 04:50 MCHC 34.0 g/dL (33.0-35.0) 03/11/17 04:50 RDW 13.8 % (11.6-16.5) 03/11/17 04:50 Plt Count 241 X10^3/uL (150.0-450.0) 03/11/17 04:50 MPV 8.4 fL (7.4-11.0) 03/11/17 04:50 Neut % 70.3 % (42.0-75.0) 03/11/17 04:50 Lymph % 17.1 % (21.0-51.0) L 03/11/17 04:50 [place] % 9.8 % (0.0-13.0) 03/11/17 04:50 Eos % 2.2 % (0.9-2.9) 03/11/17 04:50 Baso % 0.6 % (0.2-1.0) 03/11/17 04:50 Neut # 4.7 x10^3/uL (2.2-4.8) 03/11/17 04:50 Lymph # 1.1 X10^3/uL (1.3-2.9) L 03/11/17 04:50 Cecil # 0.6 x10^3/uL (0.3-0.8) 03/11/17 04:50 Eos # 0.1 x10^3/uL (0.0-0.2) 03/11/17 04:50 Baso # 0.0 X10^3/uL (0.0-0.1) 03/11/17 04:50 Absolute Nucleated RBC 0.0 /100WBC 03/11/17 04:50 INR Target Range - 03/11/17 04:50 INR 2.86 (0.8-1.3) H 03/11/17 04:50 PTT 39.2 SECONDS (22.9-36.5) H 03/11/17 04:50 PTT Comment - 03/11/17 04:50 Sodium 134 mmol/L (136-145) L 03/11/17 04:50 Corrected Sodium 135 mmol/L (136-145) L 03/11/17 04:50 Potassium 4.1 mmol/L (3.5-5.1) 03/11/17 04:50 Chloride 99 mmol/L (98-107) 03/11/17 04:50 Carbon Dioxide 29.7 mmol/L (21-32) 03/11/17 04:50 BUN 29 mg/dL (7-18) H 03/11/17 04:50 Creatinine 1.09 mg/dL (0.55-1.02) H 03/11/17 04:50 Est GFR (MDRD) Af Amer > 60 (>60) 03/11/17 04:50 Est GFR (MDRD) Non-Af 51 (>60) L 03/11/17 04:50 Glucose 133 mg/dL (65-99) H 03/11/17 04:50 Calcium 8.9 mg/dL (8.5-10.1) 03/11/17 04:50 Corrected Calcium 9.6 mg/dL (8.5-10.1) 03/11/17 04:50 Magnesium 1.8 mg/dL (1.7-2.9) 03/11/17 04:50 Total Bilirubin 0.30 mg/dL (0.2-1.0) 03/11/17 04:50 AST 23 Units/L (15-37) 03/11/17 04:50 ALT 32 Units/L (12-78) 03/11/17 04:50 Alkaline Phosphatase 88 Units/L (46-116) 03/11/17 04:50 Creatine Kinase 60 Units/L (26-192) 03/11/17 04:50 CK-MB (CK-2) 2.5 ng/mL (0-4.0) 03/11/17 04:50 CK/CKMB % Calc 4.2 % (<4) 03/11/17 04:50 Troponin I < 0.02 ng/mL (0-1.5) 03/11/17 04:50 Total Protein 6.5 g/dL (6.4-8.2) 03/11/17 04:50 Albumin 3.1 g/dL (3.4-5.0) L 03/11/17 04:50 Globulin 3.4 g/dL (2.5-4.5) 03/11/17 04:50 Albumin/Globulin Ratio 0.9 Ratio (1.1-2.1) L 03/11/17 04:50 - XRAY XRAY Interpreted by: Radiologist (CT head: No acut intracranial abnormality. Mild age-appropriate atrophy and advanced microangiopathic disease) - EKG Rate: 70 [place]: Normal Rhythm: NSR, Paced Hypertrophy: LVH ST: Nonsp - Diagnosis Discharge Problem: persistent nausea, Cerebral atrophy, Decreased hearing - Discharge Plan Disposition: HOME, SELF-CARE Condition: Stable Prescriptions: Meclizine HCl [Antivert Tab 25 mg] 25 mg PO TID PRN #30 tab PRN Reason: MOTION SICKNESS - Follow ups/Referrals Follow ups/Referrals: Devante Mera [Primary Care Provider] - 3 days - Instructions Instructions: Vertigo, [id number], Dizziness, [id number], Hyperglycemia, Nausea, Adult
[2017-03-11] MEDS ORDERED: NS 1000 ML 1,000 ML IV SCH (05:00)
[2017-03-11 05:01] LABS: BASOPHILS % (AUTO) 0.6 % (0.2-1.0); EOSINOPHILS # (AUTO) 0.1 x10^3/uL (0.0-0.2); EOSINOPHILS % (AUTO) 2.2 % (0.9-2.9); HEMATOCRIT 33.5 % (36.0-47.0); HEMOGLOBIN 11.4 g/dL (12.0-16.0); LYMPHOCYTES # (AUTO) 1.1 X10^3/uL (1.3-2.9); LYMPHOCYTES % (AUTO) 17.1 % (21.0-51.0); MEAN CORPUSCULAR HEMOGLOBIN 31.3 pg (27.0-34.0); MEAN PLATELET VOLUME 8.4 fL (7.4-11.0); MONOCYTES # (AUTO) 0.6 x10^3/uL (0.3-0.8); MONOCYTES % (AUTO) 9.8 % (0.0-13.0); NEUTROPHILS # (AUTO) 4.7 x10^3/uL (2.2-4.8); NEUTROPHILS % (AUTO) 70.3 % (42.0-75.0); PLATELET COUNT 241 X10^3/uL (150.0-450.0); RED BLOOD COUNT 3.64 X10^6/uL (3.5-5.4); RED CELL DISTRIBUTION WIDTH 13.8 % (11.6-16.5); WHITE BLOOD COUNT 6.6 X10^3/uL (3.6-10.0)
[2017-03-11 05:19] LABS: BLOOD UREA NITROGEN 29 mg/dL (7-18); CALCIUM 8.9 mg/dL (8.5-10.1); CARBON DIOXIDE 29.7 mmol/L (21-32); CHLORIDE 99 mmol/L (98-107); COR NA(FOR HYPERGLY) 135 mmol/L (136-145); CREATININE 1.09 mg/dL (0.55-1.02); SODIUM 134 mmol/L (136-145); TROPONIN I < 0.02 ng/mL (0-1.5); eGFR BLACK RACES > 60 (>60); eGFR NON BLACK RACES 51 (>60)
[2017-03-11 05:34] LABS: ALANINE AMINOTRANSFERASE 32 Units/L (12-78); ALBUMIN 3.1 g/dL (3.4-5.0); ALKALINE PHOSPHATASE 88 Units/L (46-116); ASPARTATE AMINO TRANSFERASE 23 Units/L (15-37); COR CA(FOR HYPOALB) 9.6 mg/dL (8.5-10.1); CREATINE KINASE 60 Units/L (26-192); MAGNESIUM 1.8 mg/dL (1.7-2.9); TOTAL PROTEIN 6.5 g/dL (6.4-8.2)
[2017-03-11 05:58] LABS: CKMB % 4.2 % (<4); CREATINE KINASE MB 2.5 ng/mL (0-4.0)
[2017-03-11 06:16] VITALS: BP 149/65
--- NOTE | 2017-03-11 07:01 | CT ---
CT head without contrast Indication: Vertigo, nausea, vomiting, dizziness Technique: Helical CT images of the brain were obtained without IV contrast. Reformatted images in th e coronal and sagittal planes were also generated for review. Comparison: 03/26/2016 Findings: There is no intracranial hemorrhage, visible acute infarct, focal or generalized edema, ext ra-axial collection, hydrocephalus or mass. There is stable age-appropriate cerebral atrophy. Moderat e periventricular and subcortical white matter hypoattenuation, suggestive for advanced microangiopat hic disease is also similar. The visualized paranasal sinuses and mastoid air cells are clear. No acu te osseous or soft tissue abnormality is identified. Impression: No acute intracranial abnormality. 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 Reported By:
--- NOTE | 2017-03-11 07:01 | RAD ---
Examination: Portable AP chest History: Vomiting and dizzy Comparison 01/24/2017 Findings: Continued normal heart size with pacemaker. No acute pulmonary or pleural lesion. Stable gr anuloma right lower lung. Impression: No change; no acute disease. Reported By:
== END 2017-03-11 08:16 | disposition home or self-care (01) ==
LOC: ER 04:25
DX: G31.9 Degenerative disease of nervous system, unspecified (principal); R11.10 Vomiting, unspecified; H91.90 Unspecified hearing loss, unspecified ear
CPT/HCPCS: 36415; 70450; 71045; 80053; 82550; 82553; 83735; 84484; 85025; 85610; 85730; 93005; 93010; 96365; 96374; 99283; J1200

== ENCOUNTER → 2017-04-19 | Outpatient (CLI) | payer OTHER | LOC: RAD 15:02 | PROVIDERS: ATTEND Internal Medicine Cardiovascular Disease | DX: I34.0 Nonrheumatic mitral (valve) insufficiency (principal) | CPT/HCPCS: 93306 ==

== ENCOUNTER 2017-06-26 21:25 | Emergency (ER) | payer OTHER ==
[2017-06-26 21:34] VITALS: BP 137/63; BMI 19.3
--- NOTE | 2017-06-26 22:14 | DR.GENAD ---
HPI - PCP Primary Care Physician: kristina - HPI Comment HPI Comment: TALKING TO RELATIVES OUT OF DOWN INCLUDING HER SON, ABNORMAL SPEECH NOTED BY THEM. PATIENT SAID HER LEDS GIVEN UP ON HER TODAY. NO FEVER. NO DYSURIA. DENIES DYSPHAGIA. NO TRAUMA. - Complaint/Symptoms Chief Complaint Doctors Comments: FOR PAST FEW DAYS, PATIENT IS CONFUSE, SPEECH ABNORMAL AND HAD 2 EPISODES WHEN SHE HAD FEELING OF HEAD EXPLODING. 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 - Family History History of Family Medical Conditions: Yes Family Medical History: Diabetes Mellitus, Cancer, Coronary Artery Disease, Hypertension - Social History Does patient currently use any type of tobacco product: No Have you used tobacco products in the last 12 months: No Type of Tobacco Use: None Does any household member use tobacco: No Alcohol Use: None Do you use any recreational Drugs:: No Lives With: Alone Lives Where: Home - infectious screening In the last 2 months have you had wt loss of >10#?: NO Have you had fever, night sweats or hemotysis?: No Have you traveled outside the country in the last 6 months?: No Isolation: Standard ROS - Review of Systems Constitutional: Weakness, Fatigue. negative: Chills, Fever Eyes: No Symptoms Reported. negative: Eye Pain, Discharge ENTM: No Symptoms Reported. negative: Ear Pain, Nose Discharge, Nose Congestion , Throat Pain Respiratoy: No Symptoms Reported, Short of Breath (ON EXERTION.). negative: Productive Cough, Wheezing, Hemoptysis Cardiovascular: No Symptoms Reported. negative: Chest Pain, Edema, Syncope Gastrointestinal/Abdominal: No Symptoms Reported. negative: Abdominal Pain, Diarrhea, Nausea, Vomiting Genitourinary: No Symptoms Reported. negative: Dysuria, Hematuria Neurological: Headache, Weakness, Dizziness (EPISODES OF DIZZINESS.) Musculoskeletal: No Symptoms Reported Integumentary: No Symptoms Reported Hematologic/Lymphatic: No Symptoms Reported Endocrine: No Symptoms Reported All Other Systems: Reviewed and Negative PE - Vital Signs Vitals: Temperature 98.2 F Pulse Rate 73 Respiratory Rate 16 Blood Pressure [Left Arm] 149/65 Blood Pressure [Right Arm] 149/76 Blood Pressure [Right Arm] 164/75 Blood Pressure 137/63 O2 Sat by Pulse Oximetry 98 - General Limitations: No Limitations General Appearance: Alert - Head Head Exam: Normal Inspection - Eyes Eye exam: Normal Appearance - ENT ENT Exam: Normal External Ear Exam External Ear Exam: Normal External Inspection TM/Canal Exam: Bilateral Normal Nose Exam: Normal Nose Exam Mouth Exam: Normal Inspection Throat Exam: Normal Inspection - Neck Neck Exam: Trachea Midline - Chest Chest Inspection: Symmetric Chest Wall Rise - Respiratory Respiratory Exam: Normal Lung Sounds Bilat Respiratory Exam: Bilateral Clear to Auscultation - Cardiovascular Cardiovascular Exam: Regular Rate, Normal Rhythm, Normal Heart Sounds - Abdominal Exam Abdominal Exam: Normal Bowel Sounds, Soft. negative: Tenderness - Extremities Extremities Exam: Normal Inspection - Back Back Exam: Normal Inspection - Neurologic Neurological Exam: Alert, Oriented X3, CN II-XII Intact, Normal Gait, Reflexes Normal, Other (HER FRIEND IN ED, SHE SAID PATIENTS SPEECH IS CHANGE. LESS CLEAR AND SLOW. SHE SAID IT WAS WORSE BUT GETTING BETTER.). negative: Motor Sensory Deficit - Psychiatric Psychiatric Exam: Normal Affect, Normal Mood - Skin Skin Exam: Normal Color MDM - Differential Diagnosis Differential Diagnosis: CVA, TIA, [place], ARRYTHMIA, ELETROLYTE IMBALANCE, SINUSITIS Course - Treatment Treatment: SEE ORDERS. PATIENT DO NOT WISH TO BE ADMITTED FOR OBSERVATION IN HOSPITAL D/C AMA FOR THIS REASON. SHE WANT TO SEE HER PCP IN AM. - Education/Counseling Education/Counseling: Patient, Education Educated On: Diagnosis, Needs for Follow Up, Other (NEXT DOOR NEIGHBOR IN ED WITH PATIENT.) ROR - Labs Reviewed Laboratory Results Reviewed?: Yes Result Diagrams: 06/26/17 23:20 06/26/17 23:20 Laboratory: WBC 6.4 X10^3/uL (3.6-10.0) 06/26/17 23:20 RBC 3.21 X10^6/uL (3.5-5.4) L 06/26/17 23:20 Hgb 10.1 g/dL (12.0-16.0) L 06/26/17 23:20 Hct 28.9 % (36.0-47.0) L 06/26/17 23:20 MCV 89.8 fL (80.0-100.0) 06/26/17 23:20 MCH 31.4 pg (27.0-34.0) 06/26/17 23:20 MCHC 35.0 g/dL (33.0-35.0) 06/26/17 23:20 RDW 13.0 % (11.6-16.5) 06/26/17 23:20 Plt Count 242 X10^3/uL (150.0-450.0) 06/26/17 23:20 MPV 8.4 fL (7.4-11.0) 06/26/17 23:20 Neut % (Auto) 61.2 % (42.0-75.0) 06/26/17 23:20 Lymph % (Auto) 22.4 % (21.0-51.0) 06/26/17 23:20 [place] % (Auto) 12.4 % (0.0-13.0) 06/26/17 23:20 Eos % (Auto) 3.1 % (0.9-2.9) H 06/26/17 23:20 Baso % (Auto) 0.9 % (0.2-1.0) 06/26/17 23:20 Neut # (Auto) 3.9 x10^3/uL (2.2-4.8) 06/26/17 23:20 Lymph # (Auto) 1.4 X10^3/uL (1.3-2.9) 06/26/17 23:20 [place] # (Auto) 0.8 x10^3/uL (0.3-0.8) 06/26/17 23:20 Eos # (Auto) 0.2 x10^3/uL (0.0-0.2) 06/26/17 23:20 Baso # (Auto) 0.1 X10^3/uL (0.0-0.1) 06/26/17 23:20 Absolute Nucleated RBC 0.0 /100WBC 06/26/17 23:20 Sodium 130 mmol/L (136-145) L 06/26/17 23:20 Corrected Sodium 130 mmol/L (136-145) L 06/26/17 23:20 Potassium 2.8 mmol/L (3.5-5.1) L* 06/26/17 23:20 Chloride 90 mmol/L (98-107) L 06/26/17 23:20 Carbon Dioxide 33.8 mmol/L (21-32) H 06/26/17 23:20 BUN 60 mg/dL (7-18) H 06/26/17 23:20 Creatinine 1.44 mg/dL (0.55-1.02) H 06/26/17 23:20 Est GFR (MDRD) Af Amer 45 (>60) L 06/26/17 23:20 Est GFR (MDRD) Non-Af 37 (>60) L 06/26/17 23:20 Glucose 117 mg/dL (65-99) H 06/26/17 23:20 Calcium 8.8 mg/dL (8.5-10.1) 06/26/17 23:20 Corrected Calcium TNP 06/26/17 23:20 Total Bilirubin 0.40 mg/dL (0.2-1.0) 06/26/17 23:20 AST 16 Units/L (15-37) 06/26/17 23:20 ALT 26 Units/L (12-78) 06/26/17 23:20 Alkaline Phosphatase 117 Units/L (46-116) H 06/26/17 23:20 Creatine Kinase 86 Units/L (26-192) 06/26/17 23:20 CK-MB (CK-2) 1.8 ng/mL (0-4.0) 06/26/17 23:20 CK/CKMB % Calc 2.1 % (<4) 06/26/17 23:20 Troponin I < 0.02 ng/mL (0-1.5) 06/26/17 23:20 Total Protein 7.5 g/dL (6.4-8.2) 06/26/17 23:20 Albumin 3.6 g/dL (3.4-5.0) 06/26/17 23:20 Globulin 3.9 g/dL (2.5-4.5) 06/26/17 23:20 Albumin/Globulin Ratio 0.9 Ratio (1.1-2.1) L 06/26/17 23:20 - XRAY XRAY Interpreted by: Radiologist XRAY Findings: REPORT DISCUSS WITH PATIENT. - EKG Rhythm: Paced (EKG NOTED) - Diagnosis Discharge Problem: Dysarthria, Hypokalemia Altered mental state Qualifiers: Altered mental status type: transient alteration of awareness Qualified Code(s) : R40.4 - Transient alteration of awareness - Discharge Plan Disposition: 07 AGAINST MEDICAL ADVICE Condition: Stable - Follow ups/Referrals Follow ups/Referrals: Devante Mera [Primary Care Provider] - 06/27/17 - Instructions Instructions: Confusion, Hypokalemia Additional Instructions: RETURN TO ED IF WORSE. YOU ALSO HAVE ABNORMAL SPEECH. YOU ARE DISCHARGE AGAINST MEDICAL ADVICE.
--- NOTE | 2017-06-26 23:08 | CT ---
CT head without contrast Indication: 'Explosion' in the head Comparison: 03/11/2017 Technique: CT images of the head were obtained without contrast. Automatic exposure control was utili Jildy. Findings: Patchy areas of white matter hypoattenuation are similar to prior and most compatible with chronic microangiopathy. There is mild generalized age-appropriate brain atrophy with concomitant tushar tricular and sulcal enlargement. No acute bleed, mass effect, or abnormal extra-axial collection. No significant skeletal abnormality. The visualized paranasal sinuses and mastoid air cells are grossly clear. Impression: No acute intracranial abnormality. Chronic white matter small vessel disease. Reported By:
[2017-06-26 23:28] LABS: BASOPHILS # (AUTO) 0.1 X10^3/uL (0.0-0.1); BASOPHILS % (AUTO) 0.9 % (0.2-1.0); EOSINOPHILS # (AUTO) 0.2 x10^3/uL (0.0-0.2); EOSINOPHILS % (AUTO) 3.1 % (0.9-2.9); HEMATOCRIT 28.9 % (36.0-47.0); HEMOGLOBIN 10.1 g/dL (12.0-16.0); LYMPHOCYTES # (AUTO) 1.4 X10^3/uL (1.3-2.9); LYMPHOCYTES % (AUTO) 22.4 % (21.0-51.0); MEAN CORPUSCULAR HEMOGLOBIN 31.4 pg (27.0-34.0); MEAN CORPUSCULAR VOLUME 89.8 fL (80.0-100.0); MEAN PLATELET VOLUME 8.4 fL (7.4-11.0); MONOCYTES # (AUTO) 0.8 x10^3/uL (0.3-0.8); MONOCYTES % (AUTO) 12.4 % (0.0-13.0); NEUTROPHILS # (AUTO) 3.9 x10^3/uL (2.2-4.8); NEUTROPHILS % (AUTO) 61.2 % (42.0-75.0); PLATELET COUNT 242 X10^3/uL (150.0-450.0); RED BLOOD COUNT 3.21 X10^6/uL (3.5-5.4); WHITE BLOOD COUNT 6.4 X10^3/uL (3.6-10.0)
[2017-06-26 23:51] LABS: ALANINE AMINOTRANSFERASE 26 Units/L (12-78); ALBUMIN 3.6 g/dL (3.4-5.0); ALKALINE PHOSPHATASE 117 Units/L (46-116); ASPARTATE AMINO TRANSFERASE 16 Units/L (15-37); BLOOD UREA NITROGEN 60 mg/dL (7-18); CALCIUM 8.8 mg/dL (8.5-10.1); CARBON DIOXIDE 33.8 mmol/L (21-32); CHLORIDE 90 mmol/L (98-107); CKMB % 2.1 % (<4); COR NA(FOR HYPERGLY) 130 mmol/L (136-145); CREATINE KINASE 86 Units/L (26-192); CREATINE KINASE MB 1.8 ng/mL (0-4.0); CREATININE 1.44 mg/dL (0.55-1.02); SODIUM 130 mmol/L (136-145); TOTAL PROTEIN 7.5 g/dL (6.4-8.2); TROPONIN I < 0.02 ng/mL (0-1.5); eGFR BLACK RACES 45 (>60); eGFR NON BLACK RACES 37 (>60)
--- NOTE | 2017-06-27 00:03 | RAD ---
Chest, AP portable Indication: 'Explosion' in her head. Speech difficulty. Comparison: 03/11/2017 Findings: Cardiac silhouette is unremarkable. Left subclavian approach cardiac device and leads again noted. There is a stable calcified granuloma of the right lung. Lungs are otherwise clear without ed adam, infiltrates, or pleural effusion. Impression: No acute chest process. Reported By:
[2017-06-27] MEDS ORDERED: K-LYTE EFFERVESCENT PO ONE (00:43)
[2017-06-27] MEDS ORDERED: K-LYTE EFFERVESCENT ONE (00:44)
== END 2017-06-27 01:09 | disposition left against medical advice (07) ==
LOC: ER 21:38
DX: R40.4 Transient alteration of awareness (principal); R47.1 Dysarthria and anarthria; E87.6 Hypokalemia; R94.31 Abnormal electrocardiogram [ECG] [EKG]
CPT/HCPCS: 36415; 70450; 71045; 80053; 82550; 82553; 84484; 85025; 93005; 99283

== ENCOUNTER 2017-07-14 21:47 | Inpatient (IN) | payer OTHER ==
[2017-07-14] MEDS ORDERED: NS 1000 ML 1,000 ML IV SCH (22:00)
--- NOTE | 2017-07-14 22:06 | DR.GENAD ---
HPI - Complaint/Symptoms Chief Complaint Doctors Comments: Patient brought in by EMS states they were called to a patient that was unresponsive but breathing and when they got there she was reponsive but hypotensive with blood pressure 84/50. State family said she has not been eating well and only had a bowel of cereal today. Patient states she has been having pain in the xiphoid area worst yesterday and earlier today. She denies cold cough, fever or chills. - Nurses notes reviewed Nurses Notes Review: Yes - Source History Provided: Patient, EMS - Mode of Arrival Mode of Arrival: EMS - Timing Came on: Gradually - Duration Duration: Constant How lon Duration: Days - Severity Severity: Moderate - Modifying Factors Worsens:: nothing Improves:: nothing PMH - PMH Past Medical History: Hypertension Past Surgical History: Yes Surgical History: Cholecystectomy, CROCHETER Surgery - Family History Family Medical History: Diabetes Mellitus, Cancer, Coronary Artery Disease, Hypertension - Social History Do you use any recreational Drugs:: No ROS - Review of Systems Constitutional: No Symptoms Reported, Weakness, Loss of Appetite. negative: See HPI, Chills, Diaphoresis, Fever, Malaise, Irritable, Fatigue, Other Eyes: No Symptoms Reported ENTM: No Symptoms Reported. negative: See HPI, Ear Pain, Ear Discharge, Pulling on Ears, Hearing Loss, Nose Pain, Nose Discharge, Epistaxis, Nose Congestion, Mouth Pain, Mouth Swelling, Loose Teeth, Drooling, Throat Pain, Throat Swelling, Ear Foreign Body Respiratoy: No Symptoms Reported, Non-Productive Cough Cardiovascular: No Symptoms Reported, Chest Pain Gastrointestinal/Abdominal: No Symptoms Reported, Constipation. negative: See HPI, Abdominal Pain, Diarrhea, Nausea, Vomiting, Food Intolerance, Other Genitourinary: No Symptoms Reported Neurological: No Symptoms Reported, Emotional Problems, Problems Walking Musculoskeletal: No Symptoms Reported Integumentary: No Symptoms Reported, Bruises (arms) Hematologic/Lymphatic: No Symptoms Reported, Anemia, Easy Bruising. negative: See HPI, Blood Clots, Easy Bleeding, Swollen Glands, Lymphadenopathy, Other Endocrine: No Symptoms Reported, Increased Hunger Psychiatric: No Symptoms Reported PE - Vital Signs Vitals: Temperature 99.6 F Pulse Rate 71 Respiratory Rate 16 Blood Pressure [Left Arm] 149/65 Blood Pressure [Right Arm] 149/76 Blood Pressure [Right Arm] 164/75 Blood Pressure 106/53 O2 Sat by Pulse Oximetry 96 - General Limitations: No Limitations, Altered Mental Status General Appearance: Alert, In No Apparent Distress, Lethargic - Head Head Exam: Normal Inspection, Atraumatic, Normocephalic - Eyes Eye exam: Normal Appearance, PERRL, EOMI - ENT ENT Exam: Normal Exam, Normal Oropharynx (dentures), Normal External Ear Exam, Mucous Membranes Moist, TM's Normal Bilaterally External Ear Exam: Normal External Inspection TM/Canal Exam: Bilateral Normal Nose Exam: Normal Nose Exam Mouth Exam: Normal Inspection Throat Exam: Normal Inspection - Neck Neck Exam: Normal Inspection - Chest Chest Inspection: Normal Inspection, Symmetric Chest Wall Rise - Respiratory Respiratory Exam: Normal Lung Sounds Bilat Respiratory Exam: Bilateral Clear to Auscultation - Cardiovascular Cardiovascular Exam: Regular Rate, Normal Rhythm, Normal Heart Sounds, Systolic Murmur - Abdominal Exam Abdominal Exam: Normal Inspection, Normal Bowel Sounds, Soft Abdominal Tenderness: LUQ, Mild - Extremities Extremities Exam: Normal Inspection, Full ROM, Normal Capillary Refill - Back Back Exam: Normal Inspection, (R) CVA Tenderness - Neurologic Neurological Exam: Alert, Oriented X3, CN II-XII Intact, Reflexes Normal. negative: Normal Gait (gait not tested) - Psychiatric Psychiatric Exam: Normal Affect - Skin Skin Exam: Warm, Dry, Intact, Normal Color Course - Reevaluation 1st: Improved - Consultation Called: 00:49 Call Returned: 00:49 (Dr. Pena to admit) - Education/Counseling Education/Counseling: Patient, Family Educated On: Treatment, Diagnosis, Needs for Follow Up ROR - Labs Reviewed Laboratory Results Reviewed?: Yes (all labs and x-ray results reviewed and discussed with patient) Result Diagrams: 07/14/17 22:15 07/14/17 22:15 Laboratory: WBC 12.6 X10^3/uL (3.6-10.0) H 07/14/17 22:15 RBC 2.81 X10^6/uL (3.5-5.4) L 07/14/17 22:15 Hgb 8.7 g/dL (12.0-16.0) L 07/14/17 22:15 Hct 25.4 % (36.0-47.0) L 07/14/17 22:15 MCV 90.2 fL (80.0-100.0) 07/14/17 22:15 MCH 30.8 pg (27.0-34.0) 07/14/17 22:15 MCHC 34.1 g/dL (33.0-35.0) 07/14/17 22:15 RDW 13.1 % (11.6-16.5) 07/14/17 22:15 Plt Count 114 X10^3/uL (150.0-450.0) L 07/14/17 22:15 MPV 10.9 fL (7.4-11.0) 07/14/17 22:15 Neut % (Auto) 88.0 % (42.0-75.0) H 07/14/17 22:15 Lymph % (Auto) 3.4 % (21.0-51.0) L 07/14/17 22:15 [place] % (Auto) 8.0 % (0.0-13.0) 07/14/17 22:15 Eos % (Auto) 0.1 % (0.9-2.9) L 07/14/17 22:15 Baso % (Auto) 0.5 % (0.2-1.0) 07/14/17 22:15 Neut # (Auto) 11.1 x10^3/uL (2.2-4.8) H 07/14/17 22:15 Lymph # (Auto) 0.4 X10^3/uL (1.3-2.9) L 07/14/17 22:15 [place] # (Auto) 1.0 x10^3/uL (0.3-0.8) H 07/14/17 22:15 Eos # (Auto) 0.0 x10^3/uL (0.0-0.2) 07/14/17 22:15 Baso # (Auto) 0.1 X10^3/uL (0.0-0.1) 07/14/17 22:15 Absolute Nucleated RBC 0.0 /100WBC 07/14/17 22:15 INR Target Range - 07/14/17 22:15 INR 2.75 (0.8-1.3) H 07/14/17 22:15 APTT 62.5 SECONDS (22.9-36.5) H 07/14/17 22:15 PTT Comment - 07/14/17 22:15 Sodium 126 mmol/L (136-145) L 07/14/17 22:15 Corrected Sodium 128 mmol/L (136-145) L 07/14/17 22:15 Potassium 3.6 mmol/L (3.5-5.1) 07/14/17 22:15 Chloride 91 mmol/L (98-107) L 07/14/17 22:15 Carbon Dioxide 25.2 mmol/L (21-32) 07/14/17 22:15 BUN 48 mg/dL (7-18) H 07/14/17 22:15 Creatinine 2.32 mg/dL (0.55-1.02) H 07/14/17 22:15 Est GFR (MDRD) Af Amer 26 (>60) L 07/14/17 22:15 Est GFR (MDRD) Non-Af 21 (>60) L 07/14/17 22:15 Glucose 172 mg/dL (65-99) H 07/14/17 22:15 Calcium 6.9 mg/dL (8.5-10.1) L 07/14/17 22:15 Corrected Calcium 8.3 mg/dL (8.5-10.1) L 07/14/17 22:15 Magnesium 1.3 mg/dL (1.7-2.9) L 07/14/17 22:15 Total Bilirubin 0.40 mg/dL (0.2-1.0) 07/14/17 22:15 AST 15 Units/L (15-37) 07/14/17 22:15 ALT 16 Units/L (12-78) 07/14/17 22:15 Alkaline Phosphatase 77 Units/L (46-116) 07/14/17 22:15 Creatine Kinase 62 Units/L (26-192) 07/14/17 22:15 CK-MB (CK-2) < 1.0 ng/mL (0-4.0) 07/14/17 22:15 CK/CKMB % Calc 1.6 % (<4) 07/14/17 22:15 Troponin I < 0.02 ng/mL (0-1.5) 07/14/17 22:15 Total Protein 5.6 g/dL (6.4-8.2) L 07/14/17 22:15 Albumin 2.3 g/dL (3.4-5.0) L 07/14/17 22: Globulin 3.3 g/dL (2.5-4.5) 07/14/17: Albumin/Globulin Ratio 0.7 Ratio (1.1-2.1) L 07/14/17 22: Specimen Type Catherized urine 07/14/17:34 Urine Color Yellow (YELLOW) 07/14/17: Urine Appearance Cloudy (CLEAR) 07/14/17 22: Urine pH 5.0 (5.0 - 8.0) 07/14/17 22: Ur Specific [place] 1.010 (1.000-1.030) 07/14/17: Urine Protein 3+ (NEGATIVE) 07/14/17: Urine Glucose (UA) Negative (NEGATIVE) 07/14/17: Urine Ketones Negative (NEGATIVE) 07/14/17: Urine Occult Blood 4+ (NEGATIVE) 07/14/17: Urine Nitrite Positive (NEGATIVE) 07/14/17: Urine Bilirubin Negative (NEGATIVE) 07/14/17: Urine Urobilinogen Normal (NORMAL) 07/14/17: Ur Leukocyte Esterase 3+ (NEGATIVE) 07/14/17: Urine RBC 20-30 /HPF (NONE SEEN) 07/14/17:34 Urine WBC 30-50 /HPF (NONE SEEN) 07/14/17 22:34 Ur Squamous Epith Cells Rare /HPF (NEGATIVE) 07/14/17: Urine Bacteria 2+ /HPF (NEGATIVE) 07/14/17: Ur Culture Indicated? Yes/culture set up 07/14/17:34 - XRAY XRAY Interpreted by: Radiologist (CT head: Stable exam chronic cerebralvolume loss and mod advanced microvascular ischemic changes.) XRAY Findings: CXR: No acute cqardiopulmonary abnormality - EKG Rate: 70 [place]: Normal Rhythm: NSR, Paced ST: Nonsp - Diagnosis Discharge Problem: Altered mental status, Hyperglycemia, Hyponatremia Urinary tract infection Qualifiers: Urinary tract infection type: acute cystitis Chronic kidney disease (CKD) Qualifiers: Chronic kidney disease stage: stage 3 (moderate) Qualified Code(s): N18.3 - Chronic kidney disease, stage 3 (moderate) - Discharge Plan Disposition: 09 ADMITTED INPATIENT Condition: Stable - Follow ups/Referrals Follow ups/Referrals: Devante Mera [Primary Care Provider] - 3 days - Instructions
[2017-07-14 22:43] LABS: BASOPHILS # (AUTO) 0.1 X10^3/uL (0.0-0.1); BASOPHILS % (AUTO) 0.5 % (0.2-1.0); EOSINOPHILS % (AUTO) 0.1 % (0.9-2.9); HEMATOCRIT 25.4 % (36.0-47.0); HEMOGLOBIN 8.7 g/dL (12.0-16.0); LYMPHOCYTES # (AUTO) 0.4 X10^3/uL (1.3-2.9); LYMPHOCYTES % (AUTO) 3.4 % (21.0-51.0); MEAN CORPUSCULAR HEMOGLOBIN 30.8 pg (27.0-34.0); MEAN CORPUSCULAR HGB CONC 34.1 g/dL (33.0-35.0); MEAN CORPUSCULAR VOLUME 90.2 fL (80.0-100.0); MEAN PLATELET VOLUME 10.9 fL (7.4-11.0); NEUTROPHILS # (AUTO) 11.1 x10^3/uL (2.2-4.8); PLATELET COUNT 114 X10^3/uL (150.0-450.0); RED BLOOD COUNT 2.81 X10^6/uL (3.5-5.4); RED CELL DISTRIBUTION WIDTH 13.1 % (11.6-16.5); WHITE BLOOD COUNT 12.6 X10^3/uL (3.6-10.0)
[2017-07-14 22:54] LABS: ALANINE AMINOTRANSFERASE 16 Units/L (12-78); ALBUMIN 2.3 g/dL (3.4-5.0); ALKALINE PHOSPHATASE 77 Units/L (46-116); ASPARTATE AMINO TRANSFERASE 15 Units/L (15-37); BLOOD UREA NITROGEN 48 mg/dL (7-18); CALCIUM 6.9 mg/dL (8.5-10.1); CARBON DIOXIDE 25.2 mmol/L (21-32); CHLORIDE 91 mmol/L (98-107); CKMB % 1.6 % (<4); COR CA(FOR HYPOALB) 8.3 mg/dL (8.5-10.1); COR NA(FOR HYPERGLY) 128 mmol/L (136-145); CREATINE KINASE 62 Units/L (26-192); CREATINE KINASE MB < 1.0 ng/mL (0-4.0); CREATININE 2.32 mg/dL (0.55-1.02); MAGNESIUM 1.3 mg/dL (1.7-2.9); TOTAL PROTEIN 5.6 g/dL (6.4-8.2); TROPONIN I < 0.02 ng/mL (0-1.5); eGFR BLACK RACES 26 (>60); eGFR NON BLACK RACES 21 (>60)
[2017-07-14 22:55] LABS: SODIUM 126 mmol/L (136-145)
--- NOTE | 2017-07-14 22:56 | CT ---
HISTORY: Weakness, decreased appetite, altered mental status Study: CT brain without contrast Comparison: 06/26/2017 Technique: Multiple axial images of the brain were obtained without administration of IV contrast. Dose reducti on techniques including Automated Exposure Control (AEC) and adjustment of mA and kV were utilized. Findings: There is chronic cerebral volume loss and nonspecific moderate to advanced subcortical and periventri cular white matter hypoattenuation likely related to chronic microvascular ischemic changes. No evid ence of acute hemorrhage, midline shift, mass effect or abnormal extra-axial fluid collection. The v entricular system is symmetric and nondilated. The soft tissues and osseous structures are unremarka ble. The visualized paranasal sinuses are clear. IMPRESSION: 1. Stable exam with chronic cerebral volume loss and moderate to advanced microvascular ischemic moseley ges. Reported By:
[2017-07-14 23:06] LABS: BILIRUBIN,URINE NEGATIVE (NEGATIVE); BLOOD/HEMOGLOBIN,URINE 4+ (NEGATIVE); GLUCOSE, URINE NEGATIVE (NEGATIVE); KETONES,URINE NEGATIVE (NEGATIVE); LEUKOCYTE ESTERASE ,URINE 3+ (NEGATIVE); NITRITES,URINE POSITIVE (NEGATIVE); PROTEIN,URINE 3+ (NEGATIVE); UROBILINOGEN,URINE NORMAL (NORMAL)
--- NOTE | 2017-07-14 23:12 | RAD ---
HISTORY: Generalized weakness, confusion Study: Single view chest Comparison: 06/26/2017 Findings: Stable dual-chamber pacemaker. No infiltrate, effusion or pneumothorax identified. The cardiac and me diastinal contours are within normal limits. The soft tissues are unremarkable. IMPRESSION: 1. No acute cardiopulmonary abnormality. Reported By:
[2017-07-14 23:17] LABS: APPEARANCE,URINE CLOUDY (CLEAR); BACTERIA,URINE 2+ /HPF (NEGATIVE); COLOR,URINE YELLOW (YELLOW); RBC,URINE 20-30 /HPF (NONE SEEN); SQUAMOUS EPITHELIAL CELL,UR RARE /HPF (NEGATIVE)
[2017-07-14] MEDS ORDERED: ROCEPHIN 1 GM IV PREMIX 1 GM/50 ML IV.SOLN. IV ONE (23:52)
[2017-07-15] MEDS ORDERED: ROCEPHIN 1 GM IV PREMIX 1 GM/50 ML IV.SOLN. IV ONE (00:06)
[2017-07-15] MEDS ORDERED: ROCEPHIN VIAL 1 GM ONE (00:23)
[2017-07-15] MEDS ORDERED: NS 100 ML IV + SPIKE MINIBAG* 100 ML IV ONE (00:23)
[2017-07-15] MEDS ORDERED: PHENERGAN TAB 25 MG PO PRN (00:52)
[2017-07-15] MEDS ORDERED: HumuLIN R SC PRN (00:55)
[2017-07-15] MEDS ORDERED: LEVAQUIN PREMIX IV 500 MG 500 MG/100 ML BAG IV SCH (01:00)
[2017-07-15] MEDS ORDERED: TYLENOL SUPP 650 MG PR PRN (01:53)
[2017-07-15] MEDS: NS 1/2 1000 ML IV 1,000 ML IV SCH ×3 (02:12→09:34)
[2017-07-15 03:53] VITALS: BMI 20.7
[2017-07-15 04:19] LABS: BASOPHILS % (AUTO) 0.2 % (0.2-1.0); HEMATOCRIT 24.8 % (36.0-47.0); HEMOGLOBIN 8.5 g/dL (12.0-16.0); LYMPHOCYTES # (AUTO) 0.4 X10^3/uL (1.3-2.9); LYMPHOCYTES % (AUTO) 3.2 % (21.0-51.0); MEAN CORPUSCULAR HGB CONC 34.5 g/dL (33.0-35.0); MEAN CORPUSCULAR VOLUME 89.8 fL (80.0-100.0); MEAN PLATELET VOLUME 8.5 fL (7.4-11.0); MONOCYTES # (AUTO) 0.9 x10^3/uL (0.3-0.8); MONOCYTES % (AUTO) 6.5 % (0.0-13.0); NEUTROPHILS # (AUTO) 12.3 x10^3/uL (2.2-4.8); NEUTROPHILS % (AUTO) 90.1 % (42.0-75.0); PLATELET COUNT 162 X10^3/uL (150.0-450.0); RED BLOOD COUNT 2.76 X10^6/uL (3.5-5.4); RED CELL DISTRIBUTION WIDTH 13.3 % (11.6-16.5); WHITE BLOOD COUNT 13.6 X10^3/uL (3.6-10.0)
[2017-07-15 04:32] LABS: ALBUMIN 2.3 g/dL (3.4-5.0); CALCIUM 7.1 mg/dL (8.5-10.1); CARBON DIOXIDE 26.1 mmol/L (21-32); COR CA(FOR HYPOALB) 8.5 mg/dL (8.5-10.1); CREATININE 2.43 mg/dL (0.55-1.02); TOTAL PROTEIN 5.6 g/dL (6.4-8.2)
[2017-07-15 04:54] LABS: BAND NEUTROPHILS % 7 % (0-10); PLATELET MORPHOLOGY COMMENT NORMAL (NORMAL)
[2017-07-15] MEDS ORDERED: POTASSIUM CHL 40 MEQ/NS 0.45% 500 ML IV PRN (06:07)
[2017-07-15] MEDS ORDERED: K-LYTE EFFERVESCENT PO PRN (06:07)
[2017-07-15] MEDS ORDERED: POTASSIUM CHLORIDE LIQ 20 MEQ UDC PO PRN (06:07)
[2017-07-15] MEDS: MAGNESIUM SULFATE 1 GM/100 mL PREMIX 1 GM/100 ML BAG IV PRN ×4 (06:34→17:16)
[2017-07-15] MEDS ORDERED: NS 1/2 1000 ML IV 1,000 ML IV ONE (07:35)
[2017-07-15] MEDS ORDERED: LOVENOX INJ 40 MG SYR SC SCH (09:00)
[2017-07-15] MEDS: LOVENOX INJ 30 MG SYR SC SCH (10:11)
[2017-07-15] MEDS: ROCEPHIN 1 GM IV PREMIX 1 GM/50 ML IV.SOLN. IV SCH (10:12)
[2017-07-15] MEDS: NS 1000 ML 1,000 ML IV SCH ×2 (11:45→20:25)
[2017-07-15] MEDS: K-RIDER 10 MEQ/NS 100 ML 10 MEQ/100 ML BAG IV PRN ×4 (15:28→19:30)
[2017-07-15] MEDS ORDERED: NS 500 ML IV 500 ML IV ONE (15:31)
[2017-07-15] MEDS: NEURONTIN CAP 300 MG PO SCH ×2 (17:10→21:00)
[2017-07-15] MEDS: BETAPACE AF PO SCH (20:26)
[2017-07-15] MEDS: REVATIO PO SCH (20:26)
[2017-07-15] MEDS: COUMADIN TAB 5 MG PO SCH ×2 (20:27→23:44)
[2017-07-15] MEDS ORDERED: NEURONTIN CAP 300 MG PO SCH (21:00)
[2017-07-16] MEDS: NS 1000 ML 1,000 ML IV SCH ×5 (04:53→21:11)
[2017-07-16 05:17] LABS: BASOPHILS % (AUTO) 0.2 % (0.2-1.0); EOSINOPHILS % (AUTO) 0.1 % (0.9-2.9); HEMATOCRIT 25.7 % (36.0-47.0); HEMOGLOBIN 8.7 g/dL (12.0-16.0); LYMPHOCYTES # (AUTO) 0.3 X10^3/uL (1.3-2.9); LYMPHOCYTES % (AUTO) 2.4 % (21.0-51.0); MEAN CORPUSCULAR HEMOGLOBIN 30.5 pg (27.0-34.0); MEAN CORPUSCULAR HGB CONC 33.8 g/dL (33.0-35.0); MEAN CORPUSCULAR VOLUME 90.3 fL (80.0-100.0); MEAN PLATELET VOLUME 11.2 fL (7.4-11.0); MONOCYTES # (AUTO) 0.6 x10^3/uL (0.3-0.8); MONOCYTES % (AUTO) 4.6 % (0.0-13.0); NEUTROPHILS # (AUTO) 11.4 x10^3/uL (2.2-4.8); NEUTROPHILS % (AUTO) 92.7 % (42.0-75.0); PLATELET COUNT 77 X10^3/uL (150.0-450.0); RED BLOOD COUNT 2.84 X10^6/uL (3.5-5.4); RED CELL DISTRIBUTION WIDTH 13.4 % (11.6-16.5); WHITE BLOOD COUNT 12.3 X10^3/uL (3.6-10.0)
[2017-07-16 05:27] LABS: ALBUMIN 2.1 g/dL (3.4-5.0); CALCIUM 7.4 mg/dL (8.5-10.1); COR CA(FOR HYPOALB) 8.9 mg/dL (8.5-10.1); CREATININE 2.02 mg/dL (0.55-1.02); MAGNESIUM 2.7 mg/dL (1.7-2.9); TOTAL PROTEIN 5.8 g/dL (6.4-8.2)
[2017-07-16 05:53] LABS: BAND NEUTROPHILS % 7 % (0-10)
[2017-07-16 05:54] LABS: PLATELET MORPHOLOGY COMMENT NORMAL (NORMAL)
--- NOTE | 2017-07-16 08:39 | DR.H&P ---
H&P - History & Physical for Day of: H&P Date: 07/15/17 - Chief Complaint Chief Complaint: UNRESPONSIVE, WEAKNESS - Allergies Allergies/Adverse Reactions: Allergies Allergy/AdvReac Type Severity Reaction Status Date / Time promethazine [From Phenergan] Allergy Verified 07/14/17 22:10 Sulfa (Sulfonamide Allergy Verified 07/14/17 22:10 Antibiotics) [SULFA] - History of Present Illness History of Present Illness: ER ADMISSION AFTER PRESENTING VIA EMS-patient brought in by EMS states they were called to a patient that was unresponsive but breathing and when they got there she was reponsive but hypotensive with blood pressure 84/50. State family said she has not been eating well and only had a bowel of cereal today. Patient states she has been having pain in the xiphoid area worst yesterday and earlier today. She denies cold cough, fever or chills. Pt had elevated wbc's and UTI on admission. Pt had cxr in ED without acute findings. Pt admitted for treatment and evaluation of acute illness. blood cultures collected on admission, iv hydration, iv atbx. verify home meds. Ct head in ED on admission - Past Medical History Past Medical History: Hypertension - Past Surgical History Surgical History: Cholecystectomy, [facility] Surgery - Family History Family Medical History: Diabetes Mellitus, Cancer, Coronary Artery Disease, Hypertension - Social History Does patient currently use any type of tobacco product: No Have you used tobacco products in the last 12 months: No Type of Tobacco Use: None Does any household member use tobacco: No Alcohol Use: None Drug Use: None - Medications Home Medications: Gabapentin [NEURONTIN CAP 300 mg *] 600 mg PO HS 07/14/17 [History Confirmed ] Losartan/Hydrochlorothiazide [Losartan-Hctz 100-25 mg Tab] 1 tab PO DAILY [History Confirmed 07/15/17] Warfarin Sodium [Coumadin Tab 5 mg] 5 mg PO DAILY 07/14/17 [History Confirmed ] - Review of Systems Constitutional: Fever, Weakness Eyes: No Symptoms Reported ENT: No Symptoms Reported Respiratory: No Symptoms Reported Cardiovascular: No Symptoms Reported Gastrointestinal: Nausea, Other (no appetite) Genitourinary: Other (decreased urine output) Musculoskeletal: No Symptoms Reported Skin: No Symptoms Reported Neurological: Weakness, Other (lethargic) - Physical Exam Vital Signs: Temperature 98.8 F Pulse Rate [Left] 69 Pulse Rate 71 Respiratory Rate 20 Blood Pressure [Left Arm] 149/65 Blood Pressure [Right Arm] 91/65 Blood Pressure [Right Arm] 164/75 Blood Pressure 106/53 O2 Sat by Pulse Oximetry 92 Oriented: Person Eyes: Normal Ear: Normal Nose: Normal Throat: Dry Respiratory: RLL Diminished, LLL Diminished Cardiovascular: Normal. negative: Edema : Normal Auscultation: Bowel Sounds: Normal Palpation: Normal Tenderness: Normal Skin: Decreased Turgur Musculoskeletal: Back:Lumbar Mood Description: Flat Speech Pattern: Delayed (pt appears lethargic, will awaken and respond appropriately but delayed, slow to respond, not slurred speech) - Assessment/Plan (1) Altered mental state Status: Acute Plan: CT HEAD ON ADMISSION, IV HYDRATION. BP CONTROL. R/O SEPSIS, IV ATBX ROCEPHIN AND LEVAQUIN. CULTURES COLLECTED ON ADMISSION. TELEMETRY, VERIFY HOME MEDS REPEAT AM LABS (2) Fever Status: Acute (3) Hyponatremia Status: Acute (4) Urinary tract infection Qualifiers: Urinary tract infection type: acute cystitis Status: Acute
[2017-07-16] MEDS: BETAPACE AF PO SCH ×2 (09:14→20:15)
[2017-07-16] MEDS: REVATIO PO SCH ×2 (09:18→20:16)
[2017-07-16] MEDS: LOVENOX INJ 30 MG SYR SC SCH (09:19)
[2017-07-16] MEDS: LEVAQUIN PREMIX IV 500 MG 500 MG/100 ML BAG IV SCH (09:20)
[2017-07-16] MEDS: ROCEPHIN 1 GM IV PREMIX 1 GM/50 ML IV.SOLN. IV SCH (09:21)
[2017-07-16] MEDS: TYLENOL 325 MG TAB PO PRN ×2 (11:30→16:09)
[2017-07-16] MEDS: TOPROL XL PO SCH (16:08)
[2017-07-16] MEDS: COUMADIN TAB 5 MG PO SCH (20:15)
[2017-07-16] MEDS: NEURONTIN CAP 300 MG PO SCH (20:16)
[2017-07-16] MEDS: MOTRIN TAB 600 MG PO PRN (23:38)
[2017-07-17] MEDS: TYLENOL 325 MG TAB PO PRN ×2 (02:36→22:38)
[2017-07-17] MEDS: NS 1000 ML 1,000 ML IV SCH ×5 (04:09→20:04)
[2017-07-17 05:25] LABS: BASOPHILS % (AUTO) 0.3 % (0.2-1.0); EOSINOPHILS % (AUTO) 0.5 % (0.9-2.9); HEMATOCRIT 23.4 % (36.0-47.0); LYMPHOCYTES # (AUTO) 0.4 X10^3/uL (1.3-2.9); LYMPHOCYTES % (AUTO) 4.1 % (21.0-51.0); MEAN CORPUSCULAR HEMOGLOBIN 31.1 pg (27.0-34.0); MEAN CORPUSCULAR HGB CONC 34.3 g/dL (33.0-35.0); MEAN CORPUSCULAR VOLUME 90.6 fL (80.0-100.0); MONOCYTES # (AUTO) 0.6 x10^3/uL (0.3-0.8); MONOCYTES % (AUTO) 6.9 % (0.0-13.0); NEUTROPHILS # (AUTO) 7.7 x10^3/uL (2.2-4.8); NEUTROPHILS % (AUTO) 88.2 % (42.0-75.0); PLATELET COUNT 76 X10^3/uL (150.0-450.0); RED BLOOD COUNT 2.58 X10^6/uL (3.5-5.4); RED CELL DISTRIBUTION WIDTH 13.4 % (11.6-16.5); WHITE BLOOD COUNT 8.7 X10^3/uL (3.6-10.0)
[2017-07-17 05:34] LABS: CALCIUM 7.6 mg/dL (8.5-10.1); CARBON DIOXIDE 21.7 mmol/L (21-32); COR CA(FOR HYPOALB) 9.2 mg/dL (8.5-10.1); CREATININE 1.79 mg/dL (0.55-1.02); TOTAL PROTEIN 5.5 g/dL (6.4-8.2)
[2017-07-17] MEDS: ROCEPHIN 1 GM IV PREMIX 1 GM/50 ML IV.SOLN. IV SCH (08:54)
[2017-07-17] MEDS: TOPROL XL PO SCH (08:55)
[2017-07-17] MEDS: BETAPACE AF PO SCH ×2 (08:55→20:06)
[2017-07-17] MEDS: REVATIO PO SCH ×2 (08:55→20:06)
[2017-07-17] MEDS: LOVENOX INJ 30 MG SYR SC SCH (09:04)
[2017-07-17] MEDS ORDERED: MAALOX or MYLANTA PO PRN (10:52)
[2017-07-17] MEDS: MOTRIN TAB 600 MG PO PRN (18:58)
[2017-07-17] MEDS: ROBITUSSIN DM PO PRN (19:14)
[2017-07-17] MEDS: NEURONTIN CAP 300 MG PO SCH (20:07)
[2017-07-18] MEDS: NS 1000 ML 1,000 ML IV SCH ×2 (03:57→16:40)
[2017-07-18 05:28] LABS: BASOPHILS % (AUTO) 0.5 % (0.2-1.0); EOSINOPHILS # (AUTO) 0.3 x10^3/uL (0.0-0.2); EOSINOPHILS % (AUTO) 2.9 % (0.9-2.9); HEMATOCRIT 24.4 % (36.0-47.0); HEMOGLOBIN 8.5 g/dL (12.0-16.0); LYMPHOCYTES # (AUTO) 0.6 X10^3/uL (1.3-2.9); LYMPHOCYTES % (AUTO) 6.7 % (21.0-51.0); MEAN CORPUSCULAR HEMOGLOBIN 31.3 pg (27.0-34.0); MEAN CORPUSCULAR VOLUME 89.4 fL (80.0-100.0); MEAN PLATELET VOLUME 11.2 fL (7.4-11.0); MONOCYTES # (AUTO) 0.6 x10^3/uL (0.3-0.8); MONOCYTES % (AUTO) 7.2 % (0.0-13.0); NEUTROPHILS # (AUTO) 7.5 x10^3/uL (2.2-4.8); NEUTROPHILS % (AUTO) 82.7 % (42.0-75.0); PLATELET COUNT 90 X10^3/uL (150.0-450.0); RED BLOOD COUNT 2.73 X10^6/uL (3.5-5.4); RED CELL DISTRIBUTION WIDTH 13.5 % (11.6-16.5)
[2017-07-18 05:37] LABS: ALBUMIN 1.9 g/dL (3.4-5.0); CALCIUM 7.7 mg/dL (8.5-10.1); CARBON DIOXIDE 22.3 mmol/L (21-32); COR CA(FOR HYPOALB) 9.4 mg/dL (8.5-10.1); CREATININE 1.36 mg/dL (0.55-1.02); TOTAL PROTEIN 5.4 g/dL (6.4-8.2)
[2017-07-18] MEDS: ZOFRAN INJ 4 MG VIAL IVP PRN (06:07)
[2017-07-18] MEDS: ROBITUSSIN DM PO PRN ×3 (06:08→23:05)
[2017-07-18] MEDS: POTASSIUM CHL 60 MEQ/NS 0.45% 500 ML IV PRN ×2 (06:08→08:06)
[2017-07-18] MEDS: ROCEPHIN 1 GM IV PREMIX 1 GM/50 ML IV.SOLN. IV SCH (08:04)
[2017-07-18] MEDS: REVATIO PO SCH ×2 (08:05→20:32)
[2017-07-18] MEDS: LEVAQUIN PREMIX IV 500 MG 500 MG/100 ML BAG IV SCH (08:05)
[2017-07-18] MEDS: BETAPACE AF PO SCH ×2 (08:05→20:32)
[2017-07-18] MEDS: TOPROL XL PO SCH (08:05)
[2017-07-18 11:43] LABS: IRON 21 ug/dL (50-175); TRANSFERRIN 199 mg/dL (202-364)
--- NOTE | 2017-07-18 13:09 | PCM.PROG ---
Progress Note - Progress Note for Day of Date: 07/16/17 - Subjective Subjective: WAS ADMITTED FOR ALTERED MENTAL STATUS, URINARY TRACT INFECTION, AND GENERALIZED WEAKNESS. TODAY, SHE IS ALERT AND ORIENTED, LYING IN BED ON MORNING ROUNDS. SHE CONTINUES WITH COMPLAINTS OF GENERALIZED WEAKNESS. SHE ALSO REPORTS SUPRAPUBIC PAIN. PATIENT AND STAFF REPORT THAT PATIENT IS HAVING DIFFUCULTY AMBULATING WITHOUT ASSISTANCE. THEY REPORT THAT SHE IS VERY WEAK AND UNSTEADY ON HER FEET. HER VITALS TODAY ARE 98.9-70-18-94%-118/57. WBC 12.3, RBC 2.84, HGB 8.7, HCT 25.7, INR 3.38, SODIUM 128, CHLORIDE 98, BUN 51, CREATININE 2.02, GLUCOSE 124, CALCIUM 7., AST 38, TOTAL PROTEIN 5.8, ALBUMIN 2.1. OTHERWISE, SHE IS HEMODYNAMICALLY STABLE. CARDIAC ENZYMES AND EKGS HAVE BEEN WITHIN NORMAL LIMTIS. A URINE CULTURE IS PENDING. SHE IS CURRENTLY RECEIVING NORMAL SALINE AT 125ML/HR, LEVAQUIN IV, AND ROCEPHIN IV. WE WILL CONTINUE WITH CURRENT PLAN OF CARE TODAY AND HOLD COUMADIN DUE TO ELEVATED INR. OTHERWISE, WE WILL FOLLOW UP WITH AM LABS AND CONTINUE TO MONITOR PATIENT. - Past Medical Family Social History Past Med/Fam/Surg Hx: No changes since H&P Allergies: Allergies promethazine [From Phenergan] Allergy (Verified 07/14/17 22:10) Sulfa (Sulfonamide Antibiotics) [SULFA] Allergy (Verified 07/14/17 22:10) - Review of Systems ROS: No change since H&P - Vital Signs and I&O's Vital Signs: Temperature 97.5 F Pulse Rate [Left Brachial] 72 Pulse Rate [Left] 70 Pulse Rate 71 Respiratory Rate 20 Blood Pressure [Left Arm] 160/72 Blood Pressure [Right Arm] 107/76 Blood Pressure [Right Arm] 164/75 Blood Pressure 106/53 O2 Sat by Pulse Oximetry 92 Intake and Output: Intake & Output 07/16/17 07/17/17 07/18/17 07/19/17 11:59 11:59 11:59 11:59 Intake Total 2245 4620 3090 Output Total 1150 1875 1300 Balance 1095 2745 1790 - Physical Exam Oriented: Person Eyes: Normal Ear: Normal Nose: Normal Throat: Dry Respiratory: Normal Cardiovascular: Normal. negative: Edema : Normal Auscultation: Bowel Sounds: Normal Palpation: Normal Tenderness: Normal Skin: Decreased Turgur Musculoskeletal: Back:Lumbar Mood Description: Flat Speech Pattern: Clear, Appropriate - Laboratory and Diagnostics Result Diagrams: 07/18/17 04:16 07/18/17 04:16 Labs: 07/14/17 22:34 Urine,Catheterized Urine Culture - Final Escherichia Coli 07/15/17 02:16 Blood Blood Culture - Preliminary 07/15/17 02:08 Blood Blood Culture - Preliminary Laboratory WBC 9.0 X10^3/uL (3.6-10.0) 07/18/17 04:16 RBC 2.73 X10^6/uL (3.5-5.4) L 07/18/17 04:16 Hgb 8.5 g/dL (12.0-16.0) L 07/18/17 04:16 Hct 24.4 % (36.0-47.0) L 07/18/17 04:16 MCV 89.4 fL (80.0-100.0) 07/18/17 04:16 MCH 31.3 pg (27.0-34.0) 07/18/17 04:16 MCHC 35.0 g/dL (33.0-35.0) 07/18/17 04:16 RDW 13.5 % (11.6-16.5) 07/18/17 04:16 Plt Count 90 X10^3/uL (150.0-450.0) L 07/18/17 04:16 Plt Count Comment Decreased (ADEQUATE) A 07/16/17 04:15 MPV 11.2 fL (7.4-11.0) H 07/18/17 04:16 Neut % (Auto) 82.7 % (42.0-75.0) H 07/18/17 04:16 Lymph % (Auto) 6.7 % (21.0-51.0) L 07/18/17 04:16 [place] % (Auto) 7.2 % (0.0-13.0) 07/18/17 04:16 Eos % (Auto) 2.9 % (0.9-2.9) 07/18/17 04:16 Baso % (Auto) 0.5 % (0.2-1.0) 07/18/17 04:16 Neut # (Auto) 7.5 x10^3/uL (2.2-4.8) H 07/18/17 04:16 Lymph # (Auto) 0.6 X10^3/uL (1.3-2.9) L 07/18/17 04:16 [place] # (Auto) 0.6 x10^3/uL (0.3-0.8) 07/18/17 04:16 Eos # (Auto) 0.3 x10^3/uL (0.0-0.2) H 07/18/17 04:16 Baso # (Auto) 0.0 X10^3/uL (0.0-0.1) 07/18/17 04:16 Absolute Nucleated RBC 0.1 /100WBC 07/18/17 04:16 Total Counted 100 07/16/17 04:15 Neutrophils % (Manual) 88 % (39-76) H 07/16/17 04:15 Band Neutrophils % 7 % (0-10) 07/16/17 04:15 Lymphocytes % (Manual) 2 % (13-43) L 07/16/17 04:15 Monocytes % (Manual) 3 % (4-9) L 07/16/17 04:15 Plt Morphology Comment Normal (NORMAL) 07/16/17 04:15 RBC Morphology Normal (NORMAL) 07/16/17 04:15 INR Target Range - 07/18/17 04:16 INR 4.41 (0.8-1.3) H 07/18/17 04:16 APTT 62.5 SECONDS (22.9-36.5) H 07/14/17 22:15 PTT Comment - 07/14/17 22:15 Sodium 134 mmol/L (136-145) L 07/18/17 04:16 Corrected Sodium 134 mmol/L (136-145) L 07/18/17 04:16 Potassium 3.0 mmol/L (3.5-5.1) L* 07/18/17 04:16 Chloride 102 mmol/L (98-107) 07/18/17 04:16 Carbon Dioxide 22.3 mmol/L (21-32) 07/18/17 04:16 BUN 43 mg/dL (7-18) H 07/18/17 04:16 Creatinine 1.36 mg/dL (0.55-1.02) H 07/18/17 04:16 Est GFR (MDRD) Af Amer 48 (>60) L 07/18/17 04:16 Est GFR (MDRD) Non-Af 40 (>60) L 07/18/17 04:16 Glucose 118 mg/dL (65-99) H 07/18/17 04:16 POC Glucose (mg/dL) 119 mg/dL (65-99) H 07/18/17 11:14 Lactic Acid 0.9 mmol/L (0.4-2.0) 07/15/17 04:10 Calcium 7.7 mg/dL (8.5-10.1) L 07/18/17 04:16 Corrected Calcium 9.4 mg/dL (8.5-10.1) 07/18/17 04:16 Magnesium 2.0 mg/dL (1.7-2.9) 07/18/17 04:16 Iron 21 ug/dL (50-175) L 07/18/17 10:51 Transferrin 199 mg/dL (202-364) L 07/18/17 10:51 Ferritin 122 ng/mL (8-252) 07/18/17 10:51 Total Bilirubin 0.30 mg/dL (0.2-1.0) 07/18/17 04:16 AST 31 Units/L (15-37) 07/18/17 04:16 ALT 42 Units/L (12-78) 07/18/17 04:16 Alkaline Phosphatase 101 Units/L (46-116) 07/18/17 04:16 Creatine Kinase 62 Units/L (26-192) 07/14/17 22:15 CK-MB (CK-2) < 1.0 ng/mL (0-4.0) 07/14/17 22:15 CK/CKMB % Calc 1.6 % (<4) 07/14/17 22:15 Troponin I < 0.02 ng/mL (0-1.5) 07/14/17 22:15 Total Protein 5.4 g/dL (6.4-8.2) L 07/18/17 04:16 Albumin 1.9 g/dL (3.4-5.0) L 07/18/17 04:16 Globulin 3.5 g/dL (2.5-4.5) 07/18/17 04:16 Albumin/Globulin Ratio 0.5 Ratio (1.1-2.1) L 07/18/17 04:16 Vitamin B12 > 2000 pg/mL (193-986) H 07/18/17 10:51 Folate > 20.0 ng/mL (>8.6) 07/18/17 10:51 Specimen Type Catherized urine 07/14/17 22:34 Urine Color Yellow (YELLOW) 07/14/17: Urine Appearance Cloudy (CLEAR) 07/14/17 22:34 Urine pH 5.0 (5.0 - 8.0) 07/14/17: Ur Specific [place] 1.010 (1.000-1.030) 07/14/17:34 Urine Protein 3+ (NEGATIVE) 07/14/17: Urine Glucose (UA) Negative (NEGATIVE) 07/14/17: Urine Ketones Negative (NEGATIVE) 07/14/17: Urine Occult Blood 4+ (NEGATIVE) 07/14/17: Urine Nitrite Positive (NEGATIVE) 07/14/17: Urine Bilirubin Negative (NEGATIVE) 07/14/17:34 Urine Urobilinogen Normal (NORMAL) 07/14/17 22:34 Ur Leukocyte Esterase 3+ (NEGATIVE) 07/14/17 22:34 Urine RBC 20-30 /HPF (NONE SEEN) 07/14/17 22:34 Urine WBC 30-50 /HPF (NONE SEEN) 07/14/17 22:34 Ur Squamous Epith Cells Rare /HPF (NEGATIVE) 07/14/17 22:34 Urine Bacteria 2+ /HPF (NEGATIVE) 07/14/17 22:34 Ur Culture Indicated? Yes/culture set up 07/14/17:34
--- NOTE | 2017-07-18 16:14 | RAD ---
History: Shortness of breath Study: AP chest Comparison: July 14 Findings: There are new bilateral pleural effusions with vascular congestion. The heart remains pat l with unchanged pacemaker wire leads from the left subclavian vein. Impression: Acute congestive heart failure Reported By:
--- NOTE | 2017-07-18 20:16 | PCM.PROG ---
Progress Note - Progress Note for Day of Date: 07/17/17 - Subjective Subjective: WAS ADMITTED FOR ALTERED MENTAL STATUS, URINARY TRACT INFECTION, AND GENERALIZED WEAKNESS. TODAY, SHE IS ALERT AND ORIENTED, LYING IN BED ON MORNING ROUNDS. SHE CONTINUES WITH COMPLAINTS OF GENERALIZED WEAKNESS AND SUPRAPUBIC PAIN. HER VITALS TODAY ARE 99.2-70-18-94%-142/62. RBC 2.58, HGB 8.0, HCT 23.4, INR 4.98, SODIUM 130, BUN 52, CREATININE 1.79, GLUCOSE 143, CALCIUM 7.6, AST 48, TOTAL PROTEIN 5.5, ALBUMIN 2.0. OTHERWISE, SHE IS HEMODYNAMICALLY STABLE. A URINE CULTURE IS PENDING. SHE IS CURRENTLY RECEIVING NORMAL SALINE AT 125ML/HR, LEVAQUIN IV, AND ROCEPHIN IV. WE WILL CONTINUE WITH CURRENT PLAN OF CARE TODAY AND CONTINUE TO HOLD COUMADIN DUE TO ELEVATED INR. SHE WILL CONTINUE TO RECEIVE PHYSICAL THERAPY. WE HAVE SPOKEN WITH PATIENT AND FAMILY ABOUT THE POSSIBILITY OF TRANSFERRING TO [facility] FOR AN EXTENDED PERIOD OF PHYSICAL THERAPY. OTHERWISE, WE WILL FOLLOW UP WITH AM LABS AND CONTINUE TO MONITOR PATIENT. - Past Medical Family Social History Past Med/Fam/Surg Hx: No changes since H&P Allergies: Allergies promethazine [From Phenergan] Allergy (Verified 07/14/17 22:10) Sulfa (Sulfonamide Antibiotics) [SULFA] Allergy (Verified 07/14/17 22:10) - Review of Systems ROS: No change since H&P - Vital Signs and I&O's Vital Signs: Temperature 97.7 F Pulse Rate [Left Brachial] 70 Pulse Rate [Left] 70 Pulse Rate 71 Respiratory Rate 18 Blood Pressure [Left Arm] 156/68 Blood Pressure [Right Arm] 107/76 Blood Pressure [Right Arm] 164/75 Blood Pressure 106/53 O2 Sat by Pulse Oximetry 95 Intake and Output: Intake & Output 07/16/17 07/17/17 07/18/17 07/19/17 11:59 11:59 11:59 11:59 Intake Total 2245 4620 3090 600 Output Total 1150 1875 1300 Balance 1095 2745 1790 600 - Physical Exam Oriented: Person Eyes: Normal Ear: Normal Nose: Normal Throat: Dry Respiratory: Normal Cardiovascular: Normal. negative: Edema : Normal Auscultation: Bowel Sounds: Normal Palpation: Normal Tenderness: Normal Skin: Decreased Turgur Musculoskeletal: Back:Lumbar Mood Description: Flat Speech Pattern: Clear, Appropriate - Laboratory and Diagnostics Result Diagrams: 07/18/17 04:16 07/18/17 17:14 Labs: 07/14/17 22:34 Urine,Catheterized Urine Culture - Final Escherichia Coli 07/15/17 02:16 Blood Blood Culture - Preliminary 07/15/17 02:08 Blood Blood Culture - Preliminary Laboratory WBC 9.0 X10^3/uL (3.6-10.0) 07/18/17 04:16 RBC 2.73 X10^6/uL (3.5-5.4) L 07/18/17 04:16 Hgb 8.5 g/dL (12.0-16.0) L 07/18/17 04:16 Hct 24.4 % (36.0-47.0) L 07/18/17 04:16 MCV 89.4 fL (80.0-100.0) 07/18/17 04:16 MCH 31.3 pg (27.0-34.0) 07/18/17 04:16 MCHC 35.0 g/dL (33.0-35.0) 07/18/17 04:16 RDW 13.5 % (11.6-16.5) 07/18/17 04:16 Plt Count 90 X10^3/uL (150.0-450.0) L 07/18/17 04:16 Plt Count Comment Decreased (ADEQUATE) A 07/16/17 04:15 MPV 11.2 fL (7.4-11.0) H 07/18/17 04:16 Neut % (Auto) 82.7 % (42.0-75.0) H 07/18/17 04:16 Lymph % (Auto) 6.7 % (21.0-51.0) L 07/18/17 04:16 [place] % (Auto) 7.2 % (0.0-13.0) 07/18/17 04:16 Eos % (Auto) 2.9 % (0.9-2.9) 07/18/17 04:16 Baso % (Auto) 0.5 % (0.2-1.0) 07/18/17 04:16 Neut # (Auto) 7.5 x10^3/uL (2.2-4.8) H 07/18/17 04:16 Lymph # (Auto) 0.6 X10^3/uL (1.3-2.9) L 07/18/17 04:16 [place] # (Auto) 0.6 x10^3/uL (0.3-0.8) 07/18/17 04:16 Eos # (Auto) 0.3 x10^3/uL (0.0-0.2) H 07/18/17 04:16 Baso # (Auto) 0.0 X10^3/uL (0.0-0.1) 07/18/17 04:16 Absolute Nucleated RBC 0.1 /100WBC 07/18/17 04:16 Total Counted 100 07/16/17 04:15 Neutrophils % (Manual) 88 % (39-76) H 07/16/17 04:15 Band Neutrophils % 7 % (0-10) 07/16/17 04:15 Lymphocytes % (Manual) 2 % (13-43) L 07/16/17 04:15 Monocytes % (Manual) 3 % (4-9) L 07/16/17 04:15 Plt Morphology Comment Normal (NORMAL) 07/16/17 04:15 RBC Morphology Normal (NORMAL) 07/16/17 04:15 INR Target Range - 07/18/17 04:16 INR 4.41 (0.8-1.3) H 07/18/17 04:16 APTT 62.5 SECONDS (22.9-36.5) H 07/14/17 22:15 PTT Comment - 07/14/17 22:15 Sodium 134 mmol/L (136-145) L 07/18/17 04:16 Corrected Sodium 134 mmol/L (136-145) L 07/18/17 04:16 Potassium 3.7 mmol/L (3.5-5.1) 07/18/17 17:14 Chloride 102 mmol/L (98-107) 07/18/17 04:16 Carbon Dioxide 22.3 mmol/L (21-32) 07/18/17 04:16 BUN 43 mg/dL (7-18) H 07/18/17 04:16 Creatinine 1.36 mg/dL (0.55-1.02) H 07/18/17 04:16 Est GFR (MDRD) Af Amer 48 (>60) L 07/18/17 04:16 Est GFR (MDRD) Non-Af 40 (>60) L 07/18/17 04:16 Glucose 118 mg/dL (65-99) H 07/18/17 04:16 POC Glucose (mg/dL) 130 mg/dL (65-99) H 07/18/17 16:15 Lactic Acid 0.9 mmol/L (0.4-2.0) 07/15/17 04:10 Calcium 7.7 mg/dL (8.5-10.1) L 07/18/17 04:16 Corrected Calcium 9.4 mg/dL (8.5-10.1) 07/18/17 04:16 Magnesium 2.0 mg/dL (1.7-2.9) 07/18/17 04:16 Iron 21 ug/dL (50-175) L 07/18/17 10:51 Transferrin 199 mg/dL (202-364) L 07/18/17 10:51 Ferritin 122 ng/mL (8-252) 07/18/17 10:51 Total Bilirubin 0.30 mg/dL (0.2-1.0) 07/18/17 04:16 AST 31 Units/L (15-37) 07/18/17 04:16 ALT 42 Units/L (12-78) 07/18/17 04:16 Alkaline Phosphatase 101 Units/L (46-116) 07/18/17 04:16 Creatine Kinase 62 Units/L (26-192) 07/14/17 22:15 CK-MB (CK-2) < 1.0 ng/mL (0-4.0) 07/14/17 22:15 CK/CKMB % Calc 1.6 % (<4) 07/14/17 22:15 Troponin I < 0.02 ng/mL (0-1.5) 07/14/17 22:15 Total Protein 5.4 g/dL (6.4-8.2) L 07/18/17 04:16 Albumin 1.9 g/dL (3.4-5.0) L 07/18/17 04:16 Globulin 3.5 g/dL (2.5-4.5) 07/18/17 04:16 Albumin/Globulin Ratio 0.5 Ratio (1.1-2.1) L 07/18/17 04:16 Vitamin B12 > 2000 pg/mL (193-986) H 07/18/17 10:51 Folate > 20.0 ng/mL (>8.6) 07/18/17 10:51 Specimen Type Catherized urine 07/14/17 22:34 Urine Color Yellow (YELLOW) 07/14/17 22:34 Urine Appearance Cloudy (CLEAR) 07/14/17 22:34 Urine pH 5.0 (5.0 - 8.0) 07/14/17 22:34 Ur Specific [place] 1.010 (1.000-1.030) 07/14/17 22:34 Urine Protein 3+ (NEGATIVE) 07/14/17 22:34 Urine Glucose (UA) Negative (NEGATIVE) 07/14/17 22:34 Urine Ketones Negative (NEGATIVE) 07/14/17 22:34 Urine Occult Blood 4+ (NEGATIVE) 07/14/17 22:34 Urine Nitrite Positive (NEGATIVE) 07/14/17 22:34 Urine Bilirubin Negative (NEGATIVE) 07/14/17 22:34 Urine Urobilinogen Normal (NORMAL) 07/14/17 22:34 Ur Leukocyte Esterase 3+ (NEGATIVE) 07/14/17 22:34 Urine RBC 20-30 /HPF (NONE SEEN) 07/14/17 22:34 Urine WBC 30-50 /HPF (NONE SEEN) 07/14/17 22:34 Ur Squamous Epith Cells Rare /HPF (NEGATIVE) 07/14/17 22:34 Urine Bacteria 2+ /HPF (NEGATIVE) 07/14/17 22:34 Ur Culture Indicated? Yes/culture set up 07/14/17 22:34 Stl C. diff Tox B Gene Negative (NEGATIVE) 07/18/17 16:07 Stl C. diff 027-NAP1-BI Negative (NEGATIVE) 07/18/17 16:07
[2017-07-18] MEDS: NEURONTIN CAP 300 MG PO SCH (20:33)
[2017-07-19 03:55] LABS: BASOPHILS # (AUTO) 0.1 X10^3/uL (0.0-0.1); BASOPHILS % (AUTO) 0.5 % (0.2-1.0); EOSINOPHILS % (AUTO) 0.1 % (0.9-2.9); HEMATOCRIT 26.3 % (36.0-47.0); LYMPHOCYTES # (AUTO) 0.4 X10^3/uL (1.3-2.9); LYMPHOCYTES % (AUTO) 3.6 % (21.0-51.0); MEAN CORPUSCULAR HEMOGLOBIN 30.3 pg (27.0-34.0); MEAN CORPUSCULAR HGB CONC 34.1 g/dL (33.0-35.0); MEAN CORPUSCULAR VOLUME 88.7 fL (80.0-100.0); MEAN PLATELET VOLUME 10.4 fL (7.4-11.0); MONOCYTES % (AUTO) 8.7 % (0.0-13.0); NEUTROPHILS # (AUTO) 9.6 x10^3/uL (2.2-4.8); NEUTROPHILS % (AUTO) 87.1 % (42.0-75.0); PLATELET COUNT 136 X10^3/uL (150.0-450.0); RED BLOOD COUNT 2.97 X10^6/uL (3.5-5.4); RED CELL DISTRIBUTION WIDTH 13.4 % (11.6-16.5)
--- NOTE | 2017-07-19 03:58 | RAD ---
Chest, AP portable Indication: CHF Comparison: 07/18/2017 Findings: Cardiac silhouette is unchanged. There are worsened interstitial and airspace opacities, mo st prominent centrally and at the bases. Bilateral pleural effusions are not significantly changed. Impression: Worsened CHF. Reported By:
[2017-07-19 04:03] LABS: ALANINE AMINOTRANSFERASE 41 Units/L (12-78); ALBUMIN 2.1 g/dL (3.4-5.0); ALKALINE PHOSPHATASE 108 Units/L (46-116); ASPARTATE AMINO TRANSFERASE 24 Units/L (15-37); BLOOD UREA NITROGEN 30 mg/dL (7-18); CALCIUM 8.1 mg/dL (8.5-10.1); CARBON DIOXIDE 22.9 mmol/L (21-32); CHLORIDE 104 mmol/L (98-107); COR CA(FOR HYPOALB) 9.6 mg/dL (8.5-10.1); COR NA(FOR HYPERGLY) 136 mmol/L (136-145); CREATININE 1.07 mg/dL (0.55-1.02); SODIUM 135 mmol/L (136-145); eGFR BLACK RACES > 60 (>60); eGFR NON BLACK RACES 52 (>60)
[2017-07-19] MEDS ORDERED: LASIX IVP ONE (04:04)
[2017-07-19 04:12] LABS: CKMB % 2.4 % (<4); CREATINE KINASE MB 1.2 ng/mL (0-4.0); TROPONIN I 0.03 ng/mL (0-1.5)
[2017-07-19] MEDS: BETAPACE AF PO SCH ×2 (09:25→20:40)
[2017-07-19] MEDS: REVATIO PO SCH ×2 (09:25→20:40)
[2017-07-19] MEDS: ROCEPHIN 1 GM IV PREMIX 1 GM/50 ML IV.SOLN. IV SCH (09:25)
[2017-07-19] MEDS: TOPROL XL PO SCH (09:25)
[2017-07-19] MEDS ORDERED: LANOXIN PO ONE (09:26)
[2017-07-19] MEDS: LASIX IVP SCH ×2 (10:26→20:40)
[2017-07-19] MEDS ORDERED: BUTT CREAM (COMPOUND) TOP PRN (10:30)
[2017-07-19 14:10] LABS: BILIRUBIN,URINE NEGATIVE (NEGATIVE); BLOOD/HEMOGLOBIN,URINE 1+ (NEGATIVE); GLUCOSE, URINE NEGATIVE (NEGATIVE); KETONES,URINE NEGATIVE (NEGATIVE); LEUKOCYTE ESTERASE ,URINE NEGATIVE (NEGATIVE); NITRITES,URINE NEGATIVE (NEGATIVE); PROTEIN,URINE NEGATIVE (NEGATIVE); UROBILINOGEN,URINE NORMAL (NORMAL)
[2017-07-19 14:12] LABS: APPEARANCE,URINE CLEAR (CLEAR); COLOR,URINE STRAW (YELLOW)
[2017-07-19 14:17] LABS: RBC,URINE 0-2 /HPF (NONE SEEN)
[2017-07-19 14:18] LABS: AMORPHOUS SEDIMENT,UR TRACE /HPF (NEGATIVE); BACTERIA,URINE NEGATIVE /HPF (NEGATIVE); SQUAMOUS EPITHELIAL CELL,UR RARE /HPF (NEGATIVE); YEAST,URINE FEW /HPF (NEGATIVE)
[2017-07-19] MEDS: NEURONTIN CAP 300 MG PO SCH (20:40)
[2017-07-20 05:57] LABS: BASOPHILS % (AUTO) 0.3 % (0.2-1.0); EOSINOPHILS # (AUTO) 0.1 x10^3/uL (0.0-0.2); EOSINOPHILS % (AUTO) 0.9 % (0.9-2.9); HEMATOCRIT 24.5 % (36.0-47.0); HEMOGLOBIN 8.5 g/dL (12.0-16.0); LYMPHOCYTES # (AUTO) 0.8 X10^3/uL (1.3-2.9); LYMPHOCYTES % (AUTO) 7.3 % (21.0-51.0); MEAN CORPUSCULAR HEMOGLOBIN 30.5 pg (27.0-34.0); MEAN CORPUSCULAR HGB CONC 34.7 g/dL (33.0-35.0); MEAN CORPUSCULAR VOLUME 87.7 fL (80.0-100.0); MEAN PLATELET VOLUME 8.8 fL (7.4-11.0); MONOCYTES # (AUTO) 0.8 x10^3/uL (0.3-0.8); MONOCYTES % (AUTO) 7.7 % (0.0-13.0); NEUTROPHILS % (AUTO) 83.8 % (42.0-75.0); PLATELET COUNT 111 X10^3/uL (150.0-450.0); RED BLOOD COUNT 2.79 X10^6/uL (3.5-5.4); RED CELL DISTRIBUTION WIDTH 13.6 % (11.6-16.5); WHITE BLOOD COUNT 10.8 X10^3/uL (3.6-10.0)
[2017-07-20 06:06] LABS: ALBUMIN 1.9 g/dL (3.4-5.0); BLOOD UREA NITROGEN 23 mg/dL (7-18); eGFR BLACK RACES > 60 (>60)
[2017-07-20 07:17] LABS: ALANINE AMINOTRANSFERASE 36 Units/L (12-78); ALKALINE PHOSPHATASE 97 Units/L (46-116); ASPARTATE AMINO TRANSFERASE 20 Units/L (15-37); CALCIUM 7.8 mg/dL (8.5-10.1); CARBON DIOXIDE 32.5 mmol/L (21-32); CHLORIDE 101 mmol/L (98-107); COR CA(FOR HYPOALB) 9.5 mg/dL (8.5-10.1); COR NA(FOR HYPERGLY) 140 mmol/L (136-145); CREATININE 0.95 mg/dL (0.55-1.02); DIGOXIN < 0.30 ng/mL (0.9-2); SODIUM 140 mmol/L (136-145); TOTAL PROTEIN 5.6 g/dL (6.4-8.2); eGFR NON BLACK RACES 60 (>60)
[2017-07-20] MEDS: ROCEPHIN 1 GM IV PREMIX 1 GM/50 ML IV.SOLN. IV SCH (09:52)
[2017-07-20] MEDS: REVATIO PO SCH ×2 (09:53→21:00)
[2017-07-20] MEDS: LASIX IVP SCH ×2 (09:53→21:01)
[2017-07-20] MEDS: BETAPACE AF PO SCH ×2 (09:54→21:00)
[2017-07-20] MEDS: TOPROL XL PO SCH (09:54)
[2017-07-20] MEDS: NS 1000 ML 1,000 ML IV SCH (11:23)
--- NOTE | 2017-07-20 12:03 | RAD ---
Examination: Portable AP chest history: SOB Comparison 07/19/2017 Findings: Stable heart size and pacemaker position. Persistent and increasing confluent bilateral inf iltrates and probable bilateral pleural effusions. No pneumothorax. Impression: Findings continued to suggest congestive failure with pulmonary edema. Slight interval pr ogression is suggested. Reported By:
[2017-07-20] MEDS: ZOFRAN INJ 4 MG VIAL IVP PRN (19:20)
[2017-07-20] MEDS: NEURONTIN CAP 300 MG PO SCH (21:02)
[2017-07-21 06:36] LABS: BASOPHILS % (AUTO) 0.5 % (0.2-1.0); EOSINOPHILS # (AUTO) 0.2 x10^3/uL (0.0-0.2); EOSINOPHILS % (AUTO) 1.9 % (0.9-2.9); HEMATOCRIT 24.3 % (36.0-47.0); HEMOGLOBIN 8.4 g/dL (12.0-16.0); LYMPHOCYTES % (AUTO) 9.7 % (21.0-51.0); MEAN CORPUSCULAR HEMOGLOBIN 30.4 pg (27.0-34.0); MEAN CORPUSCULAR HGB CONC 34.7 g/dL (33.0-35.0); MEAN CORPUSCULAR VOLUME 87.6 fL (80.0-100.0); MEAN PLATELET VOLUME 9.1 fL (7.4-11.0); MONOCYTES # (AUTO) 0.7 x10^3/uL (0.3-0.8); NEUTROPHILS # (AUTO) 8.2 x10^3/uL (2.2-4.8); NEUTROPHILS % (AUTO) 80.9 % (42.0-75.0); PLATELET COUNT 138 X10^3/uL (150.0-450.0); RED BLOOD COUNT 2.78 X10^6/uL (3.5-5.4); RED CELL DISTRIBUTION WIDTH 13.4 % (11.6-16.5); WHITE BLOOD COUNT 10.1 X10^3/uL (3.6-10.0)
[2017-07-21 06:48] LABS: ALANINE AMINOTRANSFERASE 32 Units/L (12-78); ALBUMIN 1.9 g/dL (3.4-5.0); ALKALINE PHOSPHATASE 96 Units/L (46-116); ASPARTATE AMINO TRANSFERASE 20 Units/L (15-37); BLOOD UREA NITROGEN 23 mg/dL (7-18); CALCIUM 7.7 mg/dL (8.5-10.1); CARBON DIOXIDE 34.3 mmol/L (21-32); CHLORIDE 99 mmol/L (98-107); COR CA(FOR HYPOALB) 9.4 mg/dL (8.5-10.1); CREATININE 0.93 mg/dL (0.55-1.02); SODIUM 140 mmol/L (136-145); TOTAL PROTEIN 5.6 g/dL (6.4-8.2); eGFR BLACK RACES > 60 (>60); eGFR NON BLACK RACES > 60 (>60)
--- NOTE | 2017-07-21 07:17 | RAD ---
Examination: Portable AP chest History: SOB Comparison reference 07/20/2017 Findings: Stable heart size with no change in pacemaker position. Persistent pulmonary vascular conge stion with bibasal densities consistent with pulmonary edema and pleural fluid. Impression: No change. Reported By:
[2017-07-21] MEDS ORDERED: REVATIO PO ONE (08:53)
[2017-07-21] MEDS: REVATIO PO SCH ×2 (10:14→21:13)
[2017-07-21] MEDS: ROCEPHIN 1 GM IV PREMIX 1 GM/50 ML IV.SOLN. IV SCH (10:15)
[2017-07-21] MEDS: LASIX IVP SCH ×3 (10:16→21:16)
[2017-07-21] MEDS: POTASSIUM CHL 60 MEQ/NS 0.45% 500 ML IV PRN (10:17)
[2017-07-21] MEDS: NS 1000 ML 1,000 ML IV SCH (10:18)
[2017-07-21] MEDS: TOPROL XL PO SCH (10:22)
[2017-07-21] MEDS: BETAPACE AF PO SCH ×2 (10:23→21:13)
[2017-07-21] MEDS: NEURONTIN CAP 300 MG PO SCH (21:13)
[2017-07-22] MEDS: MOTRIN TAB 600 MG PO PRN (00:03)
[2017-07-22 06:19] LABS: BASOPHILS # (AUTO) 0.1 X10^3/uL (0.0-0.1); BASOPHILS % (AUTO) 1.1 % (0.2-1.0); EOSINOPHILS # (AUTO) 0.3 x10^3/uL (0.0-0.2); EOSINOPHILS % (AUTO) 3.5 % (0.9-2.9); HEMOGLOBIN 8.3 g/dL (12.0-16.0); LYMPHOCYTES # (AUTO) 1.1 X10^3/uL (1.3-2.9); LYMPHOCYTES % (AUTO) 11.3 % (21.0-51.0); MEAN CORPUSCULAR HEMOGLOBIN 30.8 pg (27.0-34.0); MEAN CORPUSCULAR HGB CONC 34.6 g/dL (33.0-35.0); MEAN CORPUSCULAR VOLUME 88.9 fL (80.0-100.0); MEAN PLATELET VOLUME 9.3 fL (7.4-11.0); MONOCYTES # (AUTO) 0.6 x10^3/uL (0.3-0.8); MONOCYTES % (AUTO) 5.8 % (0.0-13.0); NEUTROPHILS # (AUTO) 7.6 x10^3/uL (2.2-4.8); NEUTROPHILS % (AUTO) 78.3 % (42.0-75.0); PLATELET COUNT 169 X10^3/uL (150.0-450.0); RED CELL DISTRIBUTION WIDTH 13.6 % (11.6-16.5); WHITE BLOOD COUNT 9.7 X10^3/uL (3.6-10.0)
[2017-07-22 06:35] LABS: ALANINE AMINOTRANSFERASE 26 Units/L (12-78); ALBUMIN 1.9 g/dL (3.4-5.0); ALKALINE PHOSPHATASE 91 Units/L (46-116); ASPARTATE AMINO TRANSFERASE 16 Units/L (15-37); BLOOD UREA NITROGEN 23 mg/dL (7-18); CALCIUM 7.7 mg/dL (8.5-10.1); CARBON DIOXIDE 35.7 mmol/L (21-32); CHLORIDE 101 mmol/L (98-107); COR CA(FOR HYPOALB) 9.4 mg/dL (8.5-10.1); CREATININE 0.94 mg/dL (0.55-1.02); SODIUM 141 mmol/L (136-145); TOTAL PROTEIN 5.6 g/dL (6.4-8.2); eGFR BLACK RACES > 60 (>60); eGFR NON BLACK RACES > 60 (>60)
--- NOTE | 2017-07-22 07:04 | RAD ---
HISTORY: Shortness of breath Study: Single-view chest Comparison: 07/21/2017 Findings: The trachea is midline. The cardiac silhouette is stable. A cardiac pacing device is in place. Ther e has been no significant change in pulmonary vascular congestion with pulmonary edema and layering s mall volume pleural effusions bilaterally. The bony thorax is grossly intact. IMPRESSION: 1. No significant change in the appearance of the chest Reported By:
[2017-07-22] MEDS: K-DUR TAB 20 MEQ PO SCH (09:12)
[2017-07-22] MEDS: REVATIO PO SCH ×2 (09:12→20:04)
[2017-07-22] MEDS: BETAPACE AF PO SCH ×2 (09:12→20:04)
[2017-07-22] MEDS: TOPROL XL PO SCH (09:13)
[2017-07-22] MEDS: LASIX IVP SCH ×2 (09:15→20:04)
[2017-07-22] MEDS: ROCEPHIN 1 GM IV PREMIX 1 GM/50 ML IV.SOLN. IV SCH (09:15)
[2017-07-22] MEDS: NS 1000 ML 1,000 ML IV SCH (10:03)
[2017-07-22] MEDS ORDERED: APRESOLINE TAB 10 MG ONE (13:47)
--- NOTE | 2017-07-22 14:21 | PCM.PROG ---
Progress Note - Progress Note for Day of Date: 07/18/17 - Subjective Subjective: WAS ADMITTED FOR ALTERED MENTAL STATUS, URINARY TRACT INFECTION, AND GENERALIZED WEAKNESS. TODAY, SHE IS ALERT AND ORIENTED, LYING IN BED ON MORNING ROUNDS. SHE CONTINUES WITH COMPLAINTS OF GENERALIZED WEAKNESS AND SUPRAPUBIC PAIN. SHE IS ALSO NOTED WITH COMPLAINTS OF SHORTNESS OF BREATH THIS MORNING. ON EXAMINATION, SHE IS NOTED WITH DIMINISHED LUNG SOUNDS. HER VITALS TODAY ARE 97.5-72-20-92%-160/72. LABS WERE OBTAINED TODAY. ABNORMAL LAB VALUES INCLUDE THE FOLLOWING: RBC 2.73, HGB 8.5, HCT 24.4, PLT COUNT 90, SODIUM 134, POTASSIUM 3.0, BUN 43, CREATININE 1.36, GLUCOSE 118, CALCIUM 7.7, TOTAL PROTEIN 5.4, ALBUMIN 1.9, INR 4.41. OTHERWISE, SHE IS HEMODYNAMICALLY STABLE. A URINE CULTURE IS PENDING. TODAY, WE WILL WE WILL CONTINUE WITH CURRENT PLAN OF CARE TODAY AND CONTINUE TO HOLD COUMADIN DUE TO ELEVATED INR. SHE WILL CONTINUE TO RECEIVE PHYSICAL THERAPY. OTHERWISE, WE WILL FOLLOW UP WITH AM LABS AND CONTINUE TO MONITOR PATIENT. - Past Medical Family Social History Past Med/Fam/Surg Hx: No changes since H&P Allergies: Allergies promethazine [From Phenergan] Allergy (Verified 07/14/17 22:10) Sulfa (Sulfonamide Antibiotics) [SULFA] Allergy (Verified 07/14/17 22:10) - Review of Systems ROS: No change since H&P - Vital Signs and I&O's Vital Signs: Temperature 97.9 F Pulse Rate [Left Brachial] 70 Pulse Rate [Left] 70 Pulse Rate 72 Respiratory Rate 20 Blood Pressure [Left Arm] 136/60 Blood Pressure [Right Arm] 107/76 Blood Pressure [Right Arm] 164/75 Blood Pressure 106/53 O2 Sat by Pulse Oximetry 97 Intake and Output: Intake & Output 07/20/17 07/21/17 07/22/17 07/23/17 11:59 11:59 11:59 11:59 Intake Total 142 862 1851 Output Total 4150 1900 2200 Balance -2556 -8256 -494 - Physical Exam Oriented: Person Eyes: Normal Ear: Normal Nose: Normal Throat: Dry Respiratory: Diminished Cardiovascular: Normal. negative: Edema : Normal Auscultation: Bowel Sounds: Normal Palpation: Normal Tenderness: Normal Skin: Decreased Turgur Musculoskeletal: Back:Lumbar Mood Description: Flat Speech Pattern: Clear, Appropriate - Laboratory and Diagnostics Result Diagrams: 07/22/17 04:25 07/22/17 04:25 Labs: 07/15/17 02:08 Blood Blood Culture - Final 07/15/17 02:16 Blood Blood Culture - Final 07/14/17 22:34 Urine,Catheterized Urine Culture - Final Escherichia Coli Laboratory WBC 9.7 X10^3/uL (3.6-10.0) 07/22/17 04:25 RBC 2.70 X10^6/uL (3.5-5.4) L 07/22/17 04:25 Hgb 8.3 g/dL (12.0-16.0) L 07/22/17 04:25 Hct 24.0 % (36.0-47.0) L 07/22/17 04:25 MCV 88.9 fL (80.0-100.0) 07/22/17 04:25 MCH 30.8 pg (27.0-34.0) 07/22/17 04:25 MCHC 34.6 g/dL (33.0-35.0) 07/22/17 04:25 RDW 13.6 % (11.6-16.5) 07/22/17 04:25 Plt Count 169 X10^3/uL (150.0-450.0) 07/22/17 04:25 Plt Count Comment Decreased (ADEQUATE) A 07/16/17 04:15 MPV 9.3 fL (7.4-11.0) 07/22/17 04:25 Neut % (Auto) 78.3 % (42.0-75.0) H 07/22/17 04:25 Lymph % (Auto) 11.3 % (21.0-51.0) L 07/22/17 04:25 [place] % (Auto) 5.8 % (0.0-13.0) 07/22/17 04:25 Eos % (Auto) 3.5 % (0.9-2.9) H 07/22/17 04:25 Baso % (Auto) 1.1 % (0.2-1.0) H 07/22/17 04:25 Neut # (Auto) 7.6 x10^3/uL (2.2-4.8) H 07/22/17 04:25 Lymph # (Auto) 1.1 X10^3/uL (1.3-2.9) L 07/22/17 04:25 [place] # (Auto) 0.6 x10^3/uL (0.3-0.8) 07/22/17 04:25 Eos # (Auto) 0.3 x10^3/uL (0.0-0.2) H 07/22/17 04:25 Baso # (Auto) 0.1 X10^3/uL (0.0-0.1) 07/22/17 04:25 Absolute Nucleated RBC 0.0 /100WBC 07/22/17 04:25 Total Counted 100 07/16/17 04:15 Neutrophils % (Manual) 88 % (39-76) H 07/16/17 04:15 Band Neutrophils % 7 % (0-10) 07/16/17 04:15 Lymphocytes % (Manual) 2 % (13-43) L 07/16/17 04:15 Monocytes % (Manual) 3 % (4-9) L 07/16/17 04:15 Plt Morphology Comment Normal (NORMAL) 07/16/17 04:15 RBC Morphology Normal (NORMAL) 07/16/17 04:15 INR Target Range - 07/22/17 04:25 INR 1.36 (0.8-1.3) H 07/22/17 04:25 APTT 62.5 SECONDS (22.9-36.5) H 07/14/17 22:15 PTT Comment - 07/14/17 22:15 Sodium 141 mmol/L (136-145) 07/22/17 04:25 Corrected Sodium TNP 07/22/17 04:25 Potassium 3.4 mmol/L (3.5-5.1) L 07/22/17 04:25 Chloride 101 mmol/L (98-107) 07/22/17 04:25 Carbon Dioxide 35.7 mmol/L (21-32) H 07/22/17 04:25 BUN 23 mg/dL (7-18) H 07/22/17 04:25 Creatinine 0.94 mg/dL (0.55-1.02) 07/22/17 04:25 Est GFR (MDRD) Af Amer > 60 (>60) 07/22/17 04:25 Est GFR (MDRD) Non-Af > 60 (>60) 07/22/17 04:25 Glucose 103 mg/dL (65-99) H 07/22/17 04:25 POC Glucose (mg/dL) 118 mg/dL (65-99) H 07/20/17 11:39 Lactic Acid 0.9 mmol/L (0.4-2.0) 07/15/17 04:10 Calcium 7.7 mg/dL (8.5-10.1) L 07/22/17 04:25 Corrected Calcium 9.4 mg/dL (8.5-10.1) 07/22/17 04:25 Magnesium 2.0 mg/dL (1.7-2.9) 07/18/17 04:16 Iron 21 ug/dL (50-175) L 07/18/17 10:51 Transferrin 199 mg/dL (202-364) L 07/18/17 10:51 Ferritin 122 ng/mL (8-252) 07/18/17 10:51 Total Bilirubin 0.40 mg/dL (0.2-1.0) 07/22/17 04:25 AST 16 Units/L (15-37) 07/22/17 04:25 ALT 26 Units/L (12-78) 07/22/17 04:25 Alkaline Phosphatase 91 Units/L (46-116) 07/22/17 04:25 Creatine Kinase 50 Units/L (26-192) 07/19/17 03:24 CK-MB (CK-2) 1.2 ng/mL (0-4.0) 07/19/17 03:24 CK/CKMB % Calc 2.4 % (<4) 07/19/17 03:24 Troponin I 0.03 ng/mL (0-1.5) 07/19/17 03:24 Total Protein 5.6 g/dL (6.4-8.2) L 07/22/17 04:25 Albumin 1.9 g/dL (3.4-5.0) L 07/22/17 04:25 Globulin 3.7 g/dL (2.5-4.5) 07/22/17 04:25 Albumin/Globulin Ratio 0.5 Ratio (1.1-2.1) L 07/22/17 04:25 Vitamin B12 > 2000 pg/mL (193-986) H 07/18/17 10:51 Folate > 20.0 ng/mL (>8.6) 07/18/17 10:51 Specimen Type Catherized urine 07/19/17 13:29 Urine Color Straw (YELLOW) 07/19/17 13:29 Urine Appearance Clear (CLEAR) 07/19/17 13:29 Urine pH 5.0 (5.0 - 8.0) 07/19/17 13:29 Ur Specific [place] 1.010 (1.000-1.030) 07/19/17 13:29 Urine Protein Negative (NEGATIVE) 07/19/17 13:29 Urine Glucose (UA) Negative (NEGATIVE) 07/19/17 13:29 Urine Ketones Negative (NEGATIVE) 07/19/17 13:29 Urine Occult Blood 1+ (NEGATIVE) 07/19/17 13:29 Urine Nitrite Negative (NEGATIVE) 07/19/17 13:29 Urine Bilirubin Negative (NEGATIVE) 07/19/17 13:29 Urine Urobilinogen Normal (NORMAL) 07/19/17 13:29 Ur Leukocyte Esterase Negative (NEGATIVE) 07/19/17 13:29 Urine RBC 0-2 /HPF (NONE SEEN) 07/19/17 13:29 Urine WBC None seen /HPF (NONE SEEN) 07/19/17 13:29 Ur Squamous Epith Cells Rare /HPF (NEGATIVE) 07/19/17 13:29 Amorphous Sediment Trace /HPF (NEGATIVE) 07/19/17 13:29 Urine Bacteria Negative /HPF (NEGATIVE) 07/19/17 13:29 Urine Yeast Few /HPF (NEGATIVE) 07/19/17 13:29 Ur Culture Indicated? No/not indicated 07/19/17 13:29 Stl C. diff Tox B Gene Negative (NEGATIVE) 07/18/17 16:07 Stl C. diff [id number] Negative (NEGATIVE) 07/18/17 16:07 Digoxin < 0.30 ng/mL (0.9-2) L 07/20/17 04:30
--- NOTE | 2017-07-22 14:22 | PCM.PROG ---
Progress Note - Progress Note for Day of Date: 07/19/17 - Subjective Subjective: WAS ADMITTED FOR ALTERED MENTAL STATUS, URINARY TRACT INFECTION, AND GENERALIZED WEAKNESS. TODAY, SHE IS ALERT AND ORIENTED, LYING IN BED ON MORNING ROUNDS. SHE CONTINUES WITH COMPLAINTS OF GENERALIZED WEAKNESS AND SUPRAPUBIC PAIN. SHE IS ALSO NOTED WITH COMPLAINTS OF SHORTNESS OF BREATH THIS MORNING. ON EXAMINATION, SHE IS NOTED WITH CRACKLES IN BILATERAL LUNG PLUNKETT. HER VITALS TODAY ARE 97.8-103-20-95%-158/75. LABS WERE OBTAINED TODAY. ABNORMAL LAB VALUES INCLUDE THE FOLLOWING: WBC 11.0, RBC 2.97, HGB 9.0, HCT 26.3 , SODIUM 135, BUN 30 CREATININE 1.07, GLUCOSE 147, CALCIUM 8.1, TOTAL PROTEIN 6.0, ALBUMIN 2.1, INR 5.55. OTHERWISE, SHE IS HEMODYNAMICALLY STABLE. A URINE CULTURE IS PENDING. A CHEST XRAY WAS OBTAINED TODAY AND REVEALED ACUTE CONGESTIVE HEART FAILURE. TODAY, WE WILL WE WILL ADMINISTER LASIX 40MG IV BID AND START DIGOXIN 0.125 PO DAILY. OTHERWISE, WE WILL CONTINUE WITH CURRENT PLAN OF CARE TODAY AND CONTINUE TO HOLD COUMADIN DUE TO ELEVATED INR. WE WILL ALSO DISCONTINUE THE LEVAQUIN THAT SHE HAS BEEN RECEIVING. SHE WILL CONTINUE TO RECEIVE PHYSICAL THERAPY. OTHERWISE, WE WILL FOLLOW UP WITH AM LABS AND CONTINUE TO MONITOR PATIENT. - Past Medical Family Social History Past Med/Fam/Surg Hx: No changes since H&P Allergies: Allergies promethazine [From Phenergan] Allergy (Verified 07/14/17 22:10) Sulfa (Sulfonamide Antibiotics) [SULFA] Allergy (Verified 07/14/17 22:10) - Review of Systems ROS: No change since H&P - Vital Signs and I&O's Vital Signs: Temperature 97.9 F Pulse Rate [Left Brachial] 70 Pulse Rate [Left] 70 Pulse Rate 72 Respiratory Rate 20 Blood Pressure [Left Arm] 136/60 Blood Pressure [Right Arm] 107/76 Blood Pressure [Right Arm] 164/75 Blood Pressure 106/53 O2 Sat by Pulse Oximetry 97 Intake and Output: Intake & Output 07/20/17 07/21/17 07/22/17 07/23/17 11:59 11:59 11:59 11:59 Intake Total 803 202 7041 Output Total 4150 1900 2200 Balance -3190 -1160 -620 - Physical Exam Oriented: Person Eyes: Normal Ear: Normal Nose: Normal Throat: Dry Respiratory: OTHER (CRACKLES) Cardiovascular: Normal. negative: Edema : Normal Auscultation: Bowel Sounds: Normal Tenderness: Normal Skin: Decreased Turgur Musculoskeletal: Back:Lumbar Mood Description: Flat Speech Pattern: Clear, Appropriate - Laboratory and Diagnostics Result Diagrams: 07/22/17 04:25 07/22/17 04:25 Labs: 07/15/17 02:08 Blood Blood Culture - Final 07/15/17 02:16 Blood Blood Culture - Final 07/14/17 22:34 Urine,Catheterized Urine Culture - Final Escherichia Coli Laboratory WBC 9.7 X10^3/uL (3.6-10.0) 07/22/17 04:25 RBC 2.70 X10^6/uL (3.5-5.4) L 07/22/17 04:25 Hgb 8.3 g/dL (12.0-16.0) L 07/22/17 04:25 Hct 24.0 % (36.0-47.0) L 07/22/17 04:25 MCV 88.9 fL (80.0-100.0) 07/22/17 04:25 MCH 30.8 pg (27.0-34.0) 07/22/17 04:25 MCHC 34.6 g/dL (33.0-35.0) 07/22/17 04:25 RDW 13.6 % (11.6-16.5) 07/22/17 04:25 Plt Count 169 X10^3/uL (150.0-450.0) 07/22/17 04:25 Plt Count Comment Decreased (ADEQUATE) A 07/16/17 04:15 MPV 9.3 fL (7.4-11.0) 07/22/17 04:25 Neut % (Auto) 78.3 % (42.0-75.0) H 07/22/17 04:25 Lymph % (Auto) 11.3 % (21.0-51.0) L 07/22/17 04:25 [place] % (Auto) 5.8 % (0.0-13.0) 07/22/17 04:25 Eos % (Auto) 3.5 % (0.9-2.9) H 07/22/17 04:25 Baso % (Auto) 1.1 % (0.2-1.0) H 07/22/17 04:25 Neut # (Auto) 7.6 x10^3/uL (2.2-4.8) H 07/22/17 04:25 Lymph # (Auto) 1.1 X10^3/uL (1.3-2.9) L 07/22/17 04:25 [place] # (Auto) 0.6 x10^3/uL (0.3-0.8) 07/22/17 04:25 Eos # (Auto) 0.3 x10^3/uL (0.0-0.2) H 07/22/17 04:25 Baso # (Auto) 0.1 X10^3/uL (0.0-0.1) 07/22/17 04:25 Absolute Nucleated RBC 0.0 /100WBC 07/22/17 04:25 Total Counted 100 07/16/17 04:15 Neutrophils % (Manual) 88 % (39-76) H 07/16/17 04:15 Band Neutrophils % 7 % (0-10) 07/16/17 04:15 Lymphocytes % (Manual) 2 % (13-43) L 07/16/17 04:15 Monocytes % (Manual) 3 % (4-9) L 07/16/17 04:15 Plt Morphology Comment Normal (NORMAL) 07/16/17 04:15 RBC Morphology Normal (NORMAL) 07/16/17 04:15 INR Target Range - 07/22/17 04:25 INR 1.36 (0.8-1.3) H 07/22/17 04:25 APTT 62.5 SECONDS (22.9-36.5) H 07/14/17 22:15 PTT Comment - 07/14/17 22:15 Sodium 141 mmol/L (136-145) 07/22/17 04:25 Corrected Sodium TNP 07/22/17 04:25 Potassium 3.4 mmol/L (3.5-5.1) L 07/22/17 04:25 Chloride 101 mmol/L (98-107) 07/22/17 04:25 Carbon Dioxide 35.7 mmol/L (21-32) H 07/22/17 04:25 BUN 23 mg/dL (7-18) H 07/22/17 04:25 Creatinine 0.94 mg/dL (0.55-1.02) 07/22/17 04:25 Est GFR (MDRD) Af Amer > 60 (>60) 07/22/17 04:25 Est GFR (MDRD) Non-Af > 60 (>60) 07/22/17 04:25 Glucose 103 mg/dL (65-99) H 07/22/17 04:25 POC Glucose (mg/dL) 118 mg/dL (65-99) H 07/20/17 11:39 Lactic Acid 0.9 mmol/L (0.4-2.0) 07/15/17 04:10 Calcium 7.7 mg/dL (8.5-10.1) L 07/22/17 04:25 Corrected Calcium 9.4 mg/dL (8.5-10.1) 07/22/17 04:25 Magnesium 2.0 mg/dL (1.7-2.9) 07/18/17 04:16 Iron 21 ug/dL (50-175) L 07/18/17 10:51 Transferrin 199 mg/dL (202-364) L 07/18/17 10:51 Ferritin 122 ng/mL (8-252) 07/18/17 10:51 Total Bilirubin 0.40 mg/dL (0.2-1.0) 07/22/17 04:25 AST 16 Units/L (15-37) 07/22/17 04:25 ALT 26 Units/L (12-78) 07/22/17 04:25 Alkaline Phosphatase 91 Units/L (46-116) 07/22/17 04:25 Creatine Kinase 50 Units/L (26-192) 07/19/17 03:24 CK-MB (CK-2) 1.2 ng/mL (0-4.0) 07/19/17 03:24 CK/CKMB % Calc 2.4 % (<4) 07/19/17 03:24 Troponin I 0.03 ng/mL (0-1.5) 07/19/17 03:24 Total Protein 5.6 g/dL (6.4-8.2) L 07/22/17 04:25 Albumin 1.9 g/dL (3.4-5.0) L 07/22/17 04:25 Globulin 3.7 g/dL (2.5-4.5) 07/22/17 04:25 Albumin/Globulin Ratio 0.5 Ratio (1.1-2.1) L 07/22/17 04:25 Vitamin B12 > 2000 pg/mL (193-986) H 07/18/17 10:51 Folate > 20.0 ng/mL (>8.6) 07/18/17 10:51 Specimen Type Catherized urine 07/19/17 13:29 Urine Color Straw (YELLOW) 07/19/17 13:29 Urine Appearance Clear (CLEAR) 07/19/17 13:29 Urine pH 5.0 (5.0 - 8.0) 07/19/17 13:29 Ur Specific [place] 1.010 (1.000-1.030) 07/19/17 13:29 Urine Protein Negative (NEGATIVE) 07/19/17 13:29 Urine Glucose (UA) Negative (NEGATIVE) 07/19/17 13:29 Urine Ketones Negative (NEGATIVE) 07/19/17 13:29 Urine Occult Blood 1+ (NEGATIVE) 07/19/17 13:29 Urine Nitrite Negative (NEGATIVE) 07/19/17 13:29 Urine Bilirubin Negative (NEGATIVE) 07/19/17 13:29 Urine Urobilinogen Normal (NORMAL) 07/19/17 13:29 Ur Leukocyte Esterase Negative (NEGATIVE) 07/19/17 13:29 Urine RBC 0-2 /HPF (NONE SEEN) 07/19/17 13:29 Urine WBC None seen /HPF (NONE SEEN) 07/19/17 13:29 Ur Squamous Epith Cells Rare /HPF (NEGATIVE) 07/19/17 13:29 Amorphous Sediment Trace /HPF (NEGATIVE) 07/19/17 13:29 Urine Bacteria Negative /HPF (NEGATIVE) 07/19/17 13:29 Urine Yeast Few /HPF (NEGATIVE) 07/19/17 13:29 Ur Culture Indicated? No/not indicated 07/19/17 13:29 Stl C. diff Tox B Gene Negative (NEGATIVE) 07/18/17 16:07 Stl C. diff [id number] Negative (NEGATIVE) 07/18/17 16:07 Digoxin < 0.30 ng/mL (0.9-2) L 07/20/17 04:30
[2017-07-22] MEDS: NEURONTIN CAP 300 MG PO SCH (20:04)
--- NOTE | 2017-07-22 22:08 | PCM.PROG ---
Progress Note - Progress Note for Day of Date: 07/20/17 - Subjective Subjective: WAS ADMITTED FOR ALTERED MENTAL STATUS, URINARY TRACT INFECTION, AND GENERALIZED WEAKNESS. TODAY, SHE IS ALERT AND ORIENTED, LYING IN BED ON MORNING ROUNDS. SHE CONTINUES WITH COMPLAINTS OF GENERALIZED WEAKNESS AND SHORTNESS OF BREATH. SHE REPORTS THAT SYMPTOMS HAVE SLIGHTLY IMPROVED SINCE YESTERDAY. ON EXAMINATION, SHE IS NOTED WITH DIMINISHED LUNG SOUNDS. HER VITALS TODAY ARE 98.8-73-18-95%-177/74. LABS WERE OBTAINED TODAY. ABNORMAL LAB VALUES INCLUDE THE FOLLOWING: WBC 10.8, RBC 2.79, HGB 8.5, HCT 24.5, POTASSIUM 2.4, CARBON DIOXIDE 32.5, BUN 23, GLUCOSE 111, CALCIUM 7.8, TOTAL PROTEIN 5.6, ALBUMIN 1.9. A URINE CULTURE IS PENDING. A CHEST XRAY WAS OBTAINED TODAY AND REVEALED FINDINGS CONTINUED TO SUGGEST CONGESTIVE HEART FAILURE WITH PULMONARY EDEMA. SLIGHT INTERVAL PROGRESSION IS SUGGESTED. TODAY, WE WILL CONTINUE WITH CURRENT PLAN OF CARE. SHE WILL CONTINUE TO RECEIVE PHYSICAL THERAPY. OTHERWISE, WE WILL FOLLOW UP WITH AM LABS AND CONTINUE TO MONITOR PATIENT. - Past Medical Family Social History Past Med/Fam/Surg Hx: No changes since H&P Allergies: Allergies promethazine [From Phenergan] Allergy (Verified 07/14/17 22:10) Sulfa (Sulfonamide Antibiotics) [SULFA] Allergy (Verified 07/14/17 22:10) - Review of Systems ROS: No change since H&P - Vital Signs and I&O's Vital Signs: Temperature 98.4 F Pulse Rate [Left Brachial] 66 Pulse Rate [Left] 70 Pulse Rate 72 Respiratory Rate 20 Blood Pressure [Left Arm] 176/70 Blood Pressure [Right Arm] 107/76 Blood Pressure [Right Arm] 164/75 Blood Pressure 106/53 O2 Sat by Pulse Oximetry 96 Intake and Output: Intake & Output 07/20/17 07/21/17 07/22/17 07/23/17 11:59 11:59 11:59 11:59 Intake Total 017 191 9233 730 Output Total 4150 1900 2200 800 Balance -3190 -1160 -620 -70 - Physical Exam Oriented: Person Eyes: Normal Ear: Normal Nose: Normal Throat: Dry Respiratory: Diminished Cardiovascular: Normal. negative: Edema : Normal Auscultation: Bowel Sounds: Normal Palpation: Normal Tenderness: Normal Skin: Decreased Turgur Musculoskeletal: Back:Lumbar Mood Description: Flat Speech Pattern: Clear, Appropriate - Laboratory and Diagnostics Result Diagrams: 07/22/17 04:25 07/22/17 04:25 Labs: 07/15/17 02:08 Blood Blood Culture - Final 07/15/17 02:16 Blood Blood Culture - Final 07/14/17 22:34 Urine,Catheterized Urine Culture - Final Escherichia Coli Laboratory WBC 9.7 X10^3/uL (3.6-10.0) 07/22/17 04:25 RBC 2.70 X10^6/uL (3.5-5.4) L 07/22/17 04:25 Hgb 8.3 g/dL (12.0-16.0) L 07/22/17 04:25 Hct 24.0 % (36.0-47.0) L 07/22/17 04:25 MCV 88.9 fL (80.0-100.0) 07/22/17 04:25 MCH 30.8 pg (27.0-34.0) 07/22/17 04:25 MCHC 34.6 g/dL (33.0-35.0) 07/22/17 04:25 RDW 13.6 % (11.6-16.5) 07/22/17 04:25 Plt Count 169 X10^3/uL (150.0-450.0) 07/22/17 04:25 Plt Count Comment Decreased (ADEQUATE) A 07/16/17 04:15 MPV 9.3 fL (7.4-11.0) 07/22/17 04:25 Neut % (Auto) 78.3 % (42.0-75.0) H 07/22/17 04:25 Lymph % (Auto) 11.3 % (21.0-51.0) L 07/22/17 04:25 [place] % (Auto) 5.8 % (0.0-13.0) 07/22/17 04:25 Eos % (Auto) 3.5 % (0.9-2.9) H 07/22/17 04:25 Baso % (Auto) 1.1 % (0.2-1.0) H 07/22/17 04:25 Neut # (Auto) 7.6 x10^3/uL (2.2-4.8) H 07/22/17 04:25 Lymph # (Auto) 1.1 X10^3/uL (1.3-2.9) L 07/22/17 04:25 [place] # (Auto) 0.6 x10^3/uL (0.3-0.8) 07/22/17 04:25 Eos # (Auto) 0.3 x10^3/uL (0.0-0.2) H 07/22/17 04:25 Baso # (Auto) 0.1 X10^3/uL (0.0-0.1) 07/22/17 04:25 Absolute Nucleated RBC 0.0 /100WBC 07/22/17 04:25 Total Counted 100 07/16/17 04:15 Neutrophils % (Manual) 88 % (39-76) H 07/16/17 04:15 Band Neutrophils % 7 % (0-10) 07/16/17 04:15 Lymphocytes % (Manual) 2 % (13-43) L 07/16/17 04:15 Monocytes % (Manual) 3 % (4-9) L 07/16/17 04:15 Plt Morphology Comment Normal (NORMAL) 07/16/17 04:15 RBC Morphology Normal (NORMAL) 07/16/17 04:15 INR Target Range - 07/22/17 04:25 INR 1.36 (0.8-1.3) H 07/22/17 04:25 APTT 62.5 SECONDS (22.9-36.5) H 07/14/17 22:15 PTT Comment - 07/14/17 22:15 Sodium 141 mmol/L (136-145) 07/22/17 04:25 Corrected Sodium TNP 07/22/17 04:25 Potassium 3.4 mmol/L (3.5-5.1) L 07/22/17 04:25 Chloride 101 mmol/L (98-107) 07/22/17 04:25 Carbon Dioxide 35.7 mmol/L (21-32) H 07/22/17 04:25 BUN 23 mg/dL (7-18) H 07/22/17 04:25 Creatinine 0.94 mg/dL (0.55-1.02) 07/22/17 04:25 Est GFR (MDRD) Af Amer > 60 (>60) 07/22/17 04:25 Est GFR (MDRD) Non-Af > 60 (>60) 07/22/17 04:25 Glucose 103 mg/dL (65-99) H 07/22/17 04:25 POC Glucose (mg/dL) 118 mg/dL (65-99) H 07/20/17 11:39 Lactic Acid 0.9 mmol/L (0.4-2.0) 07/15/17 04:10 Calcium 7.7 mg/dL (8.5-10.1) L 07/22/17 04:25 Corrected Calcium 9.4 mg/dL (8.5-10.1) 07/22/17 04:25 Magnesium 2.0 mg/dL (1.7-2.9) 07/18/17 04:16 Iron 21 ug/dL (50-175) L 07/18/17 10:51 Transferrin 199 mg/dL (202-364) L 07/18/17 10:51 Ferritin 122 ng/mL (8-252) 07/18/17 10:51 Total Bilirubin 0.40 mg/dL (0.2-1.0) 07/22/17 04:25 AST 16 Units/L (15-37) 07/22/17 04:25 ALT 26 Units/L (12-78) 07/22/17 04:25 Alkaline Phosphatase 91 Units/L (46-116) 07/22/17 04:25 Creatine Kinase 50 Units/L (26-192) 07/19/17 03:24 CK-MB (CK-2) 1.2 ng/mL (0-4.0) 07/19/17 03:24 CK/CKMB % Calc 2.4 % (<4) 07/19/17 03:24 Troponin I 0.03 ng/mL (0-1.5) 07/19/17 03:24 Total Protein 5.6 g/dL (6.4-8.2) L 07/22/17 04:25 Albumin 1.9 g/dL (3.4-5.0) L 07/22/17 04:25 Globulin 3.7 g/dL (2.5-4.5) 07/22/17 04:25 Albumin/Globulin Ratio 0.5 Ratio (1.1-2.1) L 07/22/17 04:25 Vitamin B12 > 2000 pg/mL (193-986) H 07/18/17 10:51 Folate > 20.0 ng/mL (>8.6) 07/18/17 10:51 Specimen Type Catherized urine 07/19/17 13:29 Urine Color Straw (YELLOW) 07/19/17 13:29 Urine Appearance Clear (CLEAR) 07/19/17 13:29 Urine pH 5.0 (5.0 - 8.0) 07/19/17 13:29 Ur Specific [place] 1.010 (1.000-1.030) 07/19/17 13:29 Urine Protein Negative (NEGATIVE) 07/19/17 13:29 Urine Glucose (UA) Negative (NEGATIVE) 07/19/17 13:29 Urine Ketones Negative (NEGATIVE) 07/19/17 13:29 Urine Occult Blood 1+ (NEGATIVE) 07/19/17 13:29 Urine Nitrite Negative (NEGATIVE) 07/19/17 13:29 Urine Bilirubin Negative (NEGATIVE) 07/19/17 13:29 Urine Urobilinogen Normal (NORMAL) 07/19/17 13:29 Ur Leukocyte Esterase Negative (NEGATIVE) 07/19/17 13:29 Urine RBC 0-2 /HPF (NONE SEEN) 07/19/17 13:29 Urine WBC None seen /HPF (NONE SEEN) 07/19/17 13:29 Ur Squamous Epith Cells Rare /HPF (NEGATIVE) 07/19/17 13:29 Amorphous Sediment Trace /HPF (NEGATIVE) 07/19/17 13:29 Urine Bacteria Negative /HPF (NEGATIVE) 07/19/17 13:29 Urine Yeast Few /HPF (NEGATIVE) 07/19/17 13:29 Ur Culture Indicated? No/not indicated 07/19/17 13:29 Stl C. diff Tox B Gene Negative (NEGATIVE) 07/18/17 16:07 Stl C. diff 027-NAP1-BI Negative (NEGATIVE) 07/18/17 16:07 Digoxin < 0.30 ng/mL (0.9-2) L 07/20/17 04:30
--- NOTE | 2017-07-23 06:00 | RAD ---
Examination: AP chest History: SOB Comparison reference 07/22/2017 Findings: Continued normal heart size with stable position of pacing device. Persistent bibasal densi ties consistent with airspace disease and pleural effusions. The upper lungs remain relatively clear. No pneumothorax is seen. Impression: No change identified since 1 day earlier. Reported By:
[2017-07-23 06:20] LABS: ALANINE AMINOTRANSFERASE 24 Units/L (12-78); ALKALINE PHOSPHATASE 91 Units/L (46-116); ASPARTATE AMINO TRANSFERASE 14 Units/L (15-37); BASOPHILS % (AUTO) 0.4 % (0.2-1.0); BLOOD UREA NITROGEN 24 mg/dL (7-18); CARBON DIOXIDE 34.3 mmol/L (21-32); CHLORIDE 101 mmol/L (98-107); COR CA(FOR HYPOALB) 9.6 mg/dL (8.5-10.1); CREATININE 0.81 mg/dL (0.55-1.02); EOSINOPHILS # (AUTO) 0.4 x10^3/uL (0.0-0.2); EOSINOPHILS % (AUTO) 3.2 % (0.9-2.9); HEMATOCRIT 24.7 % (36.0-47.0); HEMOGLOBIN 8.4 g/dL (12.0-16.0); LYMPHOCYTES % (AUTO) 9.3 % (21.0-51.0); MAGNESIUM 1.3 mg/dL (1.7-2.9); MEAN CORPUSCULAR HEMOGLOBIN 30.2 pg (27.0-34.0); MEAN CORPUSCULAR VOLUME 88.7 fL (80.0-100.0); MEAN PLATELET VOLUME 9.5 fL (7.4-11.0); MONOCYTES # (AUTO) 0.5 x10^3/uL (0.3-0.8); MONOCYTES % (AUTO) 4.9 % (0.0-13.0); NEUTROPHILS # (AUTO) 9.1 x10^3/uL (2.2-4.8); NEUTROPHILS % (AUTO) 82.2 % (42.0-75.0); PLATELET COUNT 189 X10^3/uL (150.0-450.0); RED BLOOD COUNT 2.78 X10^6/uL (3.5-5.4); RED CELL DISTRIBUTION WIDTH 13.7 % (11.6-16.5); SODIUM 139 mmol/L (136-145); TOTAL PROTEIN 5.7 g/dL (6.4-8.2); WHITE BLOOD COUNT 11.1 X10^3/uL (3.6-10.0); eGFR BLACK RACES > 60 (>60); eGFR NON BLACK RACES > 60 (>60)
[2017-07-23] MEDS: BETAPACE AF PO SCH (08:26)
[2017-07-23] MEDS: K-DUR TAB 20 MEQ PO SCH (08:26)
[2017-07-23] MEDS: LASIX IVP SCH (08:26)
[2017-07-23] MEDS: REVATIO PO SCH (08:26)
[2017-07-23] MEDS: ROCEPHIN 1 GM IV PREMIX 1 GM/50 ML IV.SOLN. IV SCH (08:27)
[2017-07-23] MEDS: TOPROL XL PO SCH (08:27)
[2017-07-23] MEDS: NS 1000 ML 1,000 ML IV SCH (08:58)
[2017-07-23] MEDS ORDERED: MAG-OX TAB PO SCH (11:00)
[2017-07-23 12:39] VITALS: BP 148/65
[2017-07-23] MEDS ORDERED: REVATIO PO ONE (20:03)
--- NOTE | 2017-07-23 21:09 | PCM.PROG ---
Progress Note - Progress Note for Day of Date: 07/21/17 - Subjective Subjective: WAS ADMITTED FOR ALTERED MENTAL STATUS, URINARY TRACT INFECTION, AND GENERALIZED WEAKNESS. TODAY, SHE IS ALERT AND ORIENTED, LYING IN BED ON MORNING ROUNDS. SHE CONTINUES WITH COMPLAINTS OF GENERALIZED WEAKNESS AND SHORTNESS OF BREATH. SHE REPORTS THAT SYMPTOMS HAVE SLIGHTLY IMPROVED SINCE YESTERDAY. ON EXAMINATION, SHE IS NOTED WITH DIMINISHED LUNG SOUNDS. HER VITALS TODAY ARE 98.3-73-20-92%-138/79. LABS WERE OBTAINED TODAY. ABNORMAL LAB VALUES INCLUDE THE FOLLOWING: WBC 10.1, RBC 2.78, HGB 8.4, HCT 24.3, PLT COUNT 138, POTASSIUM 3.0, CARBON DIOXIDE 34.3, BUN 23, GLUCOSE 104, CALCIUM 7.7. A CHEST XRAY WAS OBTAINED TODAY AND REVEALED PERSISTENT PULMONARY VASCULAR CONGESTION WITH BIBASAL DENSITIES CONSISTENT WITH PULMONARY EDEMA AND PLEURAL FLUID. SHE IS CURRENTLY RECEIVING IV ANTIBIOTICS FOR E.COLI IN URINE WELL LASIX IV BID. TODAY, WE WILL CONTINUE WITH CURRENT PLAN OF CARE. SHE WILL CONTINUE TO RECEIVE PHYSICAL THERAPY. OTHERWISE, WE WILL FOLLOW UP WITH AM LABS AND CONTINUE TO MONITOR PATIENT. - Past Medical Family Social History Past Med/Fam/Surg Hx: No changes since H&P Allergies: Allergies promethazine [From Phenergan] Allergy (Verified 07/14/17 22:10) Sulfa (Sulfonamide Antibiotics) [SULFA] Allergy (Verified 07/14/17 22:10) - Review of Systems ROS: No change since H&P - Vital Signs and I&O's Vital Signs: Temperature 98.4 F Pulse Rate [Left Brachial] 70 Pulse Rate [Left] 70 Pulse Rate 72 Respiratory Rate 20 Blood Pressure [Left Arm] 148/65 Blood Pressure [Right Arm] 107/76 Blood Pressure [Right Arm] 164/75 Blood Pressure 106/53 O2 Sat by Pulse Oximetry 96 Intake and Output: Intake & Output 07/21/17 07/22/17 07/23/17 07/24/17 11:59 11:59 11:59 11:59 Intake Total 740 1580 2024 Output Total 1900 2200 4100 Balance -9223 -538 -9504 - Physical Exam Oriented: Person Eyes: Normal Ear: Normal Nose: Normal Throat: Dry Respiratory: Diminished Cardiovascular: Normal. negative: Edema : Normal Auscultation: Bowel Sounds: Normal Palpation: Normal Tenderness: Normal Skin: Decreased Turgur Musculoskeletal: Back:Lumbar Mood Description: Flat Speech Pattern: Clear, Appropriate - Laboratory and Diagnostics Result Diagrams: 07/23/17 04:24 07/23/17 04:24 Labs: 07/15/17 02:08 Blood Blood Culture - Final 07/15/17 02:16 Blood Blood Culture - Final 07/14/17 22:34 Urine,Catheterized Urine Culture - Final Escherichia Coli Laboratory WBC 11.1 X10^3/uL (3.6-10.0) H 07/23/17 04:24 RBC 2.78 X10^6/uL (3.5-5.4) L 07/23/17 04:24 Hgb 8.4 g/dL (12.0-16.0) L 07/23/17 04:24 Hct 24.7 % (36.0-47.0) L 07/23/17 04:24 MCV 88.7 fL (80.0-100.0) 07/23/17 04:24 MCH 30.2 pg (27.0-34.0) 07/23/17 04:24 MCHC 34.0 g/dL (33.0-35.0) 07/23/17 04:24 RDW 13.7 % (11.6-16.5) 07/23/17 04:24 Plt Count 189 X10^3/uL (150.0-450.0) 07/23/17 04:24 Plt Count Comment Decreased (ADEQUATE) A 07/16/17 04:15 MPV 9.5 fL (7.4-11.0) 07/23/17 04:24 Neut % (Auto) 82.2 % (42.0-75.0) H 07/23/17 04:24 Lymph % (Auto) 9.3 % (21.0-51.0) L 07/23/17 04:24 [place] % (Auto) 4.9 % (0.0-13.0) 07/23/17 04:24 Eos % (Auto) 3.2 % (0.9-2.9) H 07/23/17 04:24 Baso % (Auto) 0.4 % (0.2-1.0) 07/23/17 04:24 Neut # (Auto) 9.1 x10^3/uL (2.2-4.8) H 07/23/17 04:24 Lymph # (Auto) 1.0 X10^3/uL (1.3-2.9) L 07/23/17 04:24 [place] # (Auto) 0.5 x10^3/uL (0.3-0.8) 07/23/17 04:24 Eos # (Auto) 0.4 x10^3/uL (0.0-0.2) H 07/23/17 04:24 Baso # (Auto) 0.0 X10^3/uL (0.0-0.1) 07/23/17 04:24 Absolute Nucleated RBC 0.1 /100WBC 07/23/17 04:24 Total Counted 100 07/16/17 04:15 Neutrophils % (Manual) 88 % (39-76) H 07/16/17 04:15 Band Neutrophils % 7 % (0-10) 07/16/17 04:15 Lymphocytes % (Manual) 2 % (13-43) L 07/16/17 04:15 Monocytes % (Manual) 3 % (4-9) L 07/16/17 04:15 Plt Morphology Comment Normal (NORMAL) 07/16/17 04:15 RBC Morphology Normal (NORMAL) 07/16/17 04:15 INR Target Range - 07/22/17 04:25 INR 1.36 (0.8-1.3) H 07/22/17 04:25 APTT 62.5 SECONDS (22.9-36.5) H 07/14/17 22:15 PTT Comment - 07/14/17 22:15 Sodium 139 mmol/L (136-145) 07/23/17 04:24 Corrected Sodium TNP 07/23/17 04:24 Potassium 3.8 mmol/L (3.5-5.1) 07/23/17 04:24 Chloride 101 mmol/L (98-107) 07/23/17 04:24 Carbon Dioxide 34.3 mmol/L (21-32) H 07/23/17 04:24 BUN 24 mg/dL (7-18) H 07/23/17 04:24 Creatinine 0.81 mg/dL (0.55-1.02) 07/23/17 04:24 Est GFR (MDRD) Af Amer > 60 (>60) 07/23/17 04:24 Est GFR (MDRD) Non-Af > 60 (>60) 07/23/17 04:24 Glucose 99 mg/dL (65-99) 07/23/17 04:24 POC Glucose (mg/dL) 118 mg/dL (65-99) H 07/20/17 11:39 Lactic Acid 0.9 mmol/L (0.4-2.0) 07/15/17 04:10 Calcium 8.0 mg/dL (8.5-10.1) L 07/23/17 04:24 Corrected Calcium 9.6 mg/dL (8.5-10.1) 07/23/17 04:24 Magnesium 1.3 mg/dL (1.7-2.9) L 07/23/17 04:24 Iron 21 ug/dL (50-175) L 07/18/17 10:51 Transferrin 199 mg/dL (202-364) L 07/18/17 10:51 Ferritin 122 ng/mL (8-252) 07/18/17 10:51 Total Bilirubin 0.40 mg/dL (0.2-1.0) 07/23/17 04:24 AST 14 Units/L (15-37) L 07/23/17 04:24 ALT 24 Units/L (12-78) 07/23/17 04:24 Alkaline Phosphatase 91 Units/L (46-116) 07/23/17 04:24 Creatine Kinase 50 Units/L (26-192) 07/19/17 03:24 CK-MB (CK-2) 1.2 ng/mL (0-4.0) 07/19/17 03:24 CK/CKMB % Calc 2.4 % (<4) 07/19/17 03:24 Troponin I 0.03 ng/mL (0-1.5) 07/19/17 03:24 Total Protein 5.7 g/dL (6.4-8.2) L 07/23/17 04:24 Albumin 2.0 g/dL (3.4-5.0) L 07/23/17 04:24 Globulin 3.7 g/dL (2.5-4.5) 07/23/17 04:24 Albumin/Globulin Ratio 0.5 Ratio (1.1-2.1) L 07/23/17 04:24 Vitamin B12 > 2000 pg/mL (193-986) H 07/18/17 10:51 Folate > 20.0 ng/mL (>8.6) 07/18/17 10:51 Specimen Type Catherized urine 07/19/17 13:29 Urine Color Straw (YELLOW) 07/19/17 13:29 Urine Appearance Clear (CLEAR) 07/19/17 13:29 Urine pH 5.0 (5.0 - 8.0) 07/19/17 13:29 Ur Specific [place] 1.010 (1.000-1.030) 07/19/17 13:29 Urine Protein Negative (NEGATIVE) 07/19/17 13:29 Urine Glucose (UA) Negative (NEGATIVE) 07/19/17 13:29 Urine Ketones Negative (NEGATIVE) 07/19/17 13:29 Urine Occult Blood 1+ (NEGATIVE) 07/19/17 13:29 Urine Nitrite Negative (NEGATIVE) 07/19/17 13:29 Urine Bilirubin Negative (NEGATIVE) 07/19/17 13:29 Urine Urobilinogen Normal (NORMAL) 07/19/17 13:29 Ur Leukocyte Esterase Negative (NEGATIVE) 07/19/17 13:29 Urine RBC 0-2 /HPF (NONE SEEN) 07/19/17 13:29 Urine WBC None seen /HPF (NONE SEEN) 07/19/17 13:29 Ur Squamous Epith Cells Rare /HPF (NEGATIVE) 07/19/17 13:29 Amorphous Sediment Trace /HPF (NEGATIVE) 07/19/17 13:29 Urine Bacteria Negative /HPF (NEGATIVE) 07/19/17 13:29 Urine Yeast Few /HPF (NEGATIVE) 07/19/17 13:29 Ur Culture Indicated? No/not indicated 07/19/17 13:29 Stl C. diff Tox B Gene Negative (NEGATIVE) 07/18/17 16:07 Stl C. diff 027-NAP1-BI Negative (NEGATIVE) 07/18/17 16:07 Digoxin < 0.30 ng/mL (0.9-2) L 07/20/17 04:30
--- NOTE | 2017-07-23 21:09 | PCM.PROG ---
Progress Note - Progress Note for Day of Date: 07/22/17 - Subjective Subjective: WAS ADMITTED FOR ALTERED MENTAL STATUS, URINARY TRACT INFECTION, AND GENERALIZED WEAKNESS. TODAY, SHE IS ALERT AND ORIENTED, LYING IN BED ON MORNING ROUNDS. SHE CONTINUES WITH COMPLAINTS OF GENERALIZED WEAKNESS AND SHORTNESS OF BREATH. SHE REPORTS THAT SYMPTOMS HAVE SLIGHTLY IMPROVED SINCE YESTERDAY. ON EXAMINATION, SHE IS NOTED WITH DIMINISHED LUNG SOUNDS. HER VITALS TODAY ARE 97.8-70-18-98%-146/65. LABS WERE OBTAINED TODAY. ABNORMAL LAB VALUES INCLUDE THE FOLLOWING: RBC 2.70, HGB 8.3, HCT 24.0, INR 1.36, POTASSIUM 3.4, CARBON DIOXIDE 35.7, BUN 23, GLUCOSE 103, CALCIUM 7.7, . A CHEST XRAY WAS OBTAINED TODAY AND REVEALED NO SIGNIFICANT CHANGE IN PULMONARY VASCULAR CONGESTION WITH PULMONARY EDEMA AND LAYERING SMALL VOLUME PLEURAL EFFUSIONS BILATERALLY. SHE IS CURRENTLY RECEIVING IV ANTIBIOTICS FOR E.COLI IN URINE WELL LASIX IV BID. TODAY, WE WILL CONTINUE WITH CURRENT PLAN OF CARE. SHE WILL CONTINUE TO RECEIVE PHYSICAL THERAPY. OTHERWISE, WE WILL FOLLOW UP WITH AM LABS AND CONTINUE TO MONITOR PATIENT. - Past Medical Family Social History Past Med/Fam/Surg Hx: No changes since H&P Allergies: Allergies promethazine [From Phenergan] Allergy (Verified 07/14/17 22:10) Sulfa (Sulfonamide Antibiotics) [SULFA] Allergy (Verified 07/14/17 22:10) - Review of Systems ROS: No change since H&P - Vital Signs and I&O's Vital Signs: Temperature 98.4 F Pulse Rate [Left Brachial] 70 Pulse Rate [Left] 70 Pulse Rate 72 Respiratory Rate 20 Blood Pressure [Left Arm] 148/65 Blood Pressure [Right Arm] 107/76 Blood Pressure [Right Arm] 164/75 Blood Pressure 106/53 O2 Sat by Pulse Oximetry 96 Intake and Output: Intake & Output 07/21/17 07/22/17 07/23/17 07/24/17 11:59 11:59 11:59 11:59 Intake Total 740 1580 2024 Output Total 1900 2200 4100 Balance -5806 -977 -7017 - Physical Exam Oriented: Person Eyes: Normal Ear: Normal Nose: Normal Throat: Dry Respiratory: Diminished Cardiovascular: Normal. negative: Edema : Normal Auscultation: Bowel Sounds: Normal Palpation: Normal Tenderness: Normal Skin: Decreased Turgur Musculoskeletal: Back:Lumbar Mood Description: Flat Speech Pattern: Clear, Appropriate - Laboratory and Diagnostics Result Diagrams: 07/23/17 04:24 07/23/17 04:24 Labs: 07/15/17 02:08 Blood Blood Culture - Final 07/15/17 02:16 Blood Blood Culture - Final 07/14/17 22:34 Urine,Catheterized Urine Culture - Final Escherichia Coli Laboratory WBC 11.1 X10^3/uL (3.6-10.0) H 07/23/17 04:24 RBC 2.78 X10^6/uL (3.5-5.4) L 07/23/17 04:24 Hgb 8.4 g/dL (12.0-16.0) L 07/23/17 04:24 Hct 24.7 % (36.0-47.0) L 07/23/17 04:24 MCV 88.7 fL (80.0-100.0) 07/23/17 04:24 MCH 30.2 pg (27.0-34.0) 07/23/17 04:24 MCHC 34.0 g/dL (33.0-35.0) 07/23/17 04:24 RDW 13.7 % (11.6-16.5) 07/23/17 04:24 Plt Count 189 X10^3/uL (150.0-450.0) 07/23/17 04:24 Plt Count Comment Decreased (ADEQUATE) A 07/16/17 04:15 MPV 9.5 fL (7.4-11.0) 07/23/17 04:24 Neut % (Auto) 82.2 % (42.0-75.0) H 07/23/17 04:24 Lymph % (Auto) 9.3 % (21.0-51.0) L 07/23/17 04:24 [place] % (Auto) 4.9 % (0.0-13.0) 07/23/17 04:24 Eos % (Auto) 3.2 % (0.9-2.9) H 07/23/17 04:24 Baso % (Auto) 0.4 % (0.2-1.0) 07/23/17 04:24 Neut # (Auto) 9.1 x10^3/uL (2.2-4.8) H 07/23/17 04:24 Lymph # (Auto) 1.0 X10^3/uL (1.3-2.9) L 07/23/17 04:24 [place] # (Auto) 0.5 x10^3/uL (0.3-0.8) 07/23/17 04:24 Eos # (Auto) 0.4 x10^3/uL (0.0-0.2) H 07/23/17 04:24 Baso # (Auto) 0.0 X10^3/uL (0.0-0.1) 07/23/17 04:24 Absolute Nucleated RBC 0.1 /100WBC 07/23/17 04:24 Total Counted 100 07/16/17 04:15 Neutrophils % (Manual) 88 % (39-76) H 07/16/17 04:15 Band Neutrophils % 7 % (0-10) 07/16/17 04:15 Lymphocytes % (Manual) 2 % (13-43) L 07/16/17 04:15 Monocytes % (Manual) 3 % (4-9) L 07/16/17 04:15 Plt Morphology Comment Normal (NORMAL) 07/16/17 04:15 RBC Morphology Normal (NORMAL) 07/16/17 04:15 INR Target Range - 07/22/17 04:25 INR 1.36 (0.8-1.3) H 07/22/17 04:25 APTT 62.5 SECONDS (22.9-36.5) H 07/14/17 22:15 PTT Comment - 07/14/17 22:15 Sodium 139 mmol/L (136-145) 07/23/17 04:24 Corrected Sodium TNP 07/23/17 04:24 Potassium 3.8 mmol/L (3.5-5.1) 07/23/17 04:24 Chloride 101 mmol/L (98-107) 07/23/17 04:24 Carbon Dioxide 34.3 mmol/L (21-32) H 07/23/17 04:24 BUN 24 mg/dL (7-18) H 07/23/17 04:24 Creatinine 0.81 mg/dL (0.55-1.02) 07/23/17 04:24 Est GFR (MDRD) Af Amer > 60 (>60) 07/23/17 04:24 Est GFR (MDRD) Non-Af > 60 (>60) 07/23/17 04:24 Glucose 99 mg/dL (65-99) 07/23/17 04:24 POC Glucose (mg/dL) 118 mg/dL (65-99) H 07/20/17 11:39 Lactic Acid 0.9 mmol/L (0.4-2.0) 07/15/17 04:10 Calcium 8.0 mg/dL (8.5-10.1) L 07/23/17 04:24 Corrected Calcium 9.6 mg/dL (8.5-10.1) 07/23/17 04:24 Magnesium 1.3 mg/dL (1.7-2.9) L 07/23/17 04:24 Iron 21 ug/dL (50-175) L 07/18/17 10:51 Transferrin 199 mg/dL (202-364) L 07/18/17 10:51 Ferritin 122 ng/mL (8-252) 07/18/17 10:51 Total Bilirubin 0.40 mg/dL (0.2-1.0) 07/23/17 04:24 AST 14 Units/L (15-37) L 07/23/17 04:24 ALT 24 Units/L (12-78) 07/23/17 04:24 Alkaline Phosphatase 91 Units/L (46-116) 07/23/17 04:24 Creatine Kinase 50 Units/L (26-192) 07/19/17 03:24 CK-MB (CK-2) 1.2 ng/mL (0-4.0) 07/19/17 03:24 CK/CKMB % Calc 2.4 % (<4) 07/19/17 03:24 Troponin I 0.03 ng/mL (0-1.5) 07/19/17 03:24 Total Protein 5.7 g/dL (6.4-8.2) L 07/23/17 04:24 Albumin 2.0 g/dL (3.4-5.0) L 07/23/17 04:24 Globulin 3.7 g/dL (2.5-4.5) 07/23/17 04:24 Albumin/Globulin Ratio 0.5 Ratio (1.1-2.1) L 07/23/17 04:24 Vitamin B12 > 2000 pg/mL (193-986) H 07/18/17 10:51 Folate > 20.0 ng/mL (>8.6) 07/18/17 10:51 Specimen Type Catherized urine 07/19/17 13:29 Urine Color Straw (YELLOW) 07/19/17 13:29 Urine Appearance Clear (CLEAR) 07/19/17 13:29 Urine pH 5.0 (5.0 - 8.0) 07/19/17 13:29 Ur Specific [place] 1.010 (1.000-1.030) 07/19/17 13:29 Urine Protein Negative (NEGATIVE) 07/19/17 13:29 Urine Glucose (UA) Negative (NEGATIVE) 07/19/17 13:29 Urine Ketones Negative (NEGATIVE) 07/19/17 13:29 Urine Occult Blood 1+ (NEGATIVE) 07/19/17 13:29 Urine Nitrite Negative (NEGATIVE) 07/19/17 13:29 Urine Bilirubin Negative (NEGATIVE) 07/19/17 13:29 Urine Urobilinogen Normal (NORMAL) 07/19/17 13:29 Ur Leukocyte Esterase Negative (NEGATIVE) 07/19/17 13:29 Urine RBC 0-2 /HPF (NONE SEEN) 07/19/17 13:29 Urine WBC None seen /HPF (NONE SEEN) 07/19/17 13:29 Ur Squamous Epith Cells Rare /HPF (NEGATIVE) 07/19/17 13:29 Amorphous Sediment Trace /HPF (NEGATIVE) 07/19/17 13:29 Urine Bacteria Negative /HPF (NEGATIVE) 07/19/17 13:29 Urine Yeast Few /HPF (NEGATIVE) 07/19/17 13:29 Ur Culture Indicated? No/not indicated 07/19/17 13:29 Stl C. diff Tox B Gene Negative (NEGATIVE) 07/18/17 16:07 Stl C. diff [id number] Negative (NEGATIVE) 07/18/17 16:07 Digoxin < 0.30 ng/mL (0.9-2) L 07/20/17 04:30
[2017-07-24] MEDS ORDERED: BETAPACE AF PO ONE (07:28)
== END 2017-07-23 14:15 | DRG 948 ==
LOC: ER 21:47 → MED/SURG 07-15 00:58 → OBSVTOIN 07-15 00:58
PROVIDERS: ADMIT Internal Medicine; ATTEND Internal Medicine
DX: R41.82 Altered mental status, unspecified (principal); N30.00 Acute cystitis without hematuria; J90 Pleural effusion, not elsewhere classified; D68.8 Other specified coagulation defects; E87.1 Hypo-osmolality and hyponatremia; B96.20 Unspecified Escherichia coli [E. coli] as the cause of diseases classified elsewhere; I95.9 Hypotension, unspecified; I10 Essential (primary) hypertension; E86.0 Dehydration; R94.31 Abnormal electrocardiogram [ECG] [EKG]; R07.89 Other chest pain; R26.81 Unsteadiness on feet; R50.9 Fever, unspecified; R53.1 Weakness; R73.9 Hyperglycemia, unspecified
CPT/HCPCS: 36415; 51702; 70450; 71045; 80053; 80162; 81001; 82550; 82553; 82607; 82728; 82746; 83540; 83605; 83735; 84132; 84466; 84484; 85025; 85610; 85730; 87040; 87086; 87088; 87186; 87493; 93005; 93010; 94760; 96365; 96374; 99221; 99284; A4216; A4222; J0696; J1650; J1940; J1956; J2405; J3480